=== PATIENT | male | born 1950 | race Caucasian/White ===

== ENCOUNTER 2023-04-06 09:16 | Inpatient (IN) | payer MEDICARE ==
--- NOTE | 2023-04-06 09:26 | ED ---
General Adult HPI - General Stated complaint: chest pain Time Seen by Provider: 04/06/23 09:21 Source: patient, family, EMS, RN notes reviewed, old records reviewed Limitations: altered mental status - History of Present Illness Initial comments: 72-year-old male with substernal chest pain and pressure. Pain began after taking a walk this morning. No prior history of CAD. Patient had associated nausea and vomiting. History is somewhat limited in this patient due to pain. He was transported by paramedics, given aspirin by her to arrival. - Related Data Home Medications Medication Instructions Recorded Confirmed amLODIPine [Norvasc] 5 mg PO DAILY 03/20/16 03/20/16 Previous Rx's Medication Instructions Recorded Atorvastatin [Lipitor] 10 mg PO HS #30 tab 03/23/16 Clopidogrel [Plavix] 75 mg PO DAILY #30 tablet 03/23/16 Allergies Allergy/AdvReac Type Severity Reaction Status Date / Time Penicillins Allergy Unknown Verified 04/06/23 09:27 Childhood Review of Systems ROS Statement: Those systems with pertinent positive or pertinent negative responses have been documented in the HPI. ROS Other: All systems not noted in ROS Statement are negative. Past Medical History Past Medical History: Syncope Additional Past Medical History / Comment(s): kidney stones. symptomatic bradycardia - snycopal episode History of Any Multi-Drug Resistant Organisms: None Reported Past Surgical History: Orthopedic Surgery Additional Past Surgical History / Comment(s): arthroscopic surgery bilateral knees Past Anesthesia/Blood Transfusion Reactions: Postoperative Nausea & Vomiting (PONV) Additional Past Anesthesia/Blood Transfusion Reaction / Comment(s): difficult to arouse Past Psychological History: No Psychological Hx Reported Past Alcohol Use History: None Reported Past Drug Use History: None Reported - Past Family History Father Family Medical History: Cancer, Diabetes Mellitus, Hyperlipidemia, Hypertension, Myocardial Infarction ([place]) Additional Family Medical History / Comment(s): prostate. passed Mother Family Medical History: CVA/TIA, Diabetes Mellitus, Hypertension Additional Family Medical History / Comment(s): dmultiple TIAS. complication of CVA. aspiration General Exam General appearance: alert Head exam: Present: atraumatic, normocephalic Eye exam: Present: normal appearance, PERRL ENT exam: Present: normal oropharynx Neck exam: Present: normal inspection. Absent: tenderness, meningismus Respiratory exam: Present: normal lung sounds bilaterally. Absent: respiratory distress Cardiovascular Exam: Present: normal rhythm, bradycardia GI/Abdominal exam: Present: soft. Absent: distended, tenderness Extremities exam: Present: normal inspection, normal capillary refill. Absent: pedal edema, calf tenderness Neurological exam: Present: alert. Absent: motor sensory deficit Psychiatric exam: Present: normal affect, normal mood Skin exam: Present: warm, dry, intact. Absent: cyanosis, diaphoretic Course Vital Signs 04/06/23 09:21 Temperature 97.6 F Pulse Rate 52 L Respiratory 20 Rate Blood Pressure 169/103 O2 Sat by Pulse 98 Oximetry - Reevaluation(s) Reevaluation #1: 04/06/23 09:[address] Rawls Reevaluation #2: 04/06/23 09:[address] Albarado Medical Decision Making - Medical Decision Making Was pt. sent in by a medical professional or institution (, PA, DIRECTOR SALES AND MARKETING, urgent care, hospital, or fdc...) When possible be specific @ -No Did you speak to anyone other than the patient for history (EMS, parent, family, police, friend...)? What history was obtained from this source @ -Paramedics Did you review nursing and triage notes (agree or disagree)? Why? @ -I reviewed and agree with nursing and triage notes Were old charts reviewed (outside hosp., previous admission, EMS record, old EKG, old radiological studies, urgent care reports/EKG's, fdc records)? Report findings @ -No old charts were reviewed Differential Diagnosis (chest pain, altered mental status, abdominal pain women, abdominal pain men, vaginal bleeding, weakness, fever, dyspnea, syncope, headache, dizziness, GI bleed, back pain, seizure, CVA, palpatations, mental health, musculoskeletal)? @ -Differential Chest Pain: Stable Angina, Unstable Angina, STEMI, NSTEMI Aortic Dissection, Pneumothorax, Musculoskeletal, Esophageal Spasm GERD, Cholecystitis, Pancreatitis, Zoster, this is not meant to be an all-inclusive list. EKG interpreted by me (3pts min.). @ -Sinus rhythm with first-degree AV block, rate of 52, QRS duration 89, QTC 412, LA interval is prolonged, there is ST segment elevation in aVR and reciprocal ST segment depression in the lateral precordial leads as well as lead 1 and lead 2. T-wave inversion in aVL. X-rays interpreted by me (1pt min.). @ -[Chest x-ray has been ordered, results are pending CT interpreted by me (1pt min.). @ -None done U/S interpreted by me (1pt. min.). @ -None done What testing was considered but not performed or refused? (CT, X-rays, U/S, labs)? Why? @ -None What meds were considered but not given or refused? Why? @ -None Did you discuss the management of the patient with other professionals (professionals i.e. , PA, DIRECTOR SALES AND MARKETING, lab, RT, psych nurse, social science instructor, jaw skinner, teacher, foreign policy officer, registered nurse hh case manager)? Give summary @ -No Was smoking cessation discussed for >3mins.? @ -No Was critical care preformed (if so, how long)? @ -[Yes, 35 minutes Were there social determinants of health that impacted care today? How? (Homelessness, low income, unemployed, alcoholism, drug addiction, transportation, low edu. Level, literacy, decrease access to med. care, penitentiary, rehab)? @ -No Was there de-escalation of care discussed even if they declined (Discuss DNR or withdrawal of care, Hospice)? DNR status @ -No What co-morbidities impacted this encounter? (DM, HTN, Smoking, COPD, CAD, Cancer, CVA, ARF, Chemo, Hep., AIDS, mental health diagnosis, sleep apnea, morbid obesity)? @ -[Hypertension Was patient admitted / discharged? Hospital course, mention meds given and route, prescriptions, significant lab abnormalities, going to OR and other pertinent info. @ -[72-year-old male presenting with symptoms concerning for ACS. EKG is ischemic but does not meet ST segment elevation criteria. Patient is evaluated by cardiology in the emergency department and taken urgently to the [facility] for heart catheterization. Laboratory studies are pending at the time of this dictation. Undiagnosed new problem with uncertain prognosis? @ -No Drug Therapy requiring intensive monitoring for toxicity (Heparin, Nitro, Insulin, Cardizem)? @ -No Were any procedures done? @ -No Diagnosis/symptom? @ -[Acute coronary syndrome Acute, or Chronic, or Acute on Chronic? @ -Acute Uncomplicated (without systemic symptoms) or Complicated (systemic symptoms)? @ -default Side effects of treatment? @ -No Exacerbation, Progression, or Severe Exacerbation? @ -No Poses a threat to life or bodily function? How? (Chest pain, [place], [place], pneumonia, PE, COPD, DKA, ARF, appy, cholecystitis, CVA, Diverticulitis, Homicidal, Suicidal, threat to staff... and all critical care pts) @ -[Yes, ACS Critical Care Time Critical Care Time: Yes Total Critical Care Time: 35 Disposition Clinical Impression: Acute coronary syndrome Disposition: ADMITTED IP TO THIS HOSP Condition: Serious Is patient prescribed a controlled substance at d/c from ED?: No Referrals: Hector Sloan DO [Primary Care Provider] - 1-2 days Time of Disposition: 09:52
[2023-04-06] MEDS ORDERED: ATORVASTATIN 80 MG TAB PO STA (09:27)
[2023-04-06] MEDS ORDERED: NITROGLYCERIN-D5W PMX 50 MG in DEXTROSE/WATER 1 250ML.BAG IV ONE (09:32)
[2023-04-06] MEDS ORDERED: HEPARIN SODIUM 1,000 UN/ML (10ML VL) IV ONE ×2 (09:32→11:05)
[2023-04-06] MEDS ORDERED: HEPARIN SODIUM 1,000 UN/ML (10ML VL) IV PRN (09:32)
[2023-04-06] MEDS ORDERED: MORPHINE SULFATE 4 MG/ML SYRINGE IVP STA (09:33)
[2023-04-06] MEDS ORDERED: NALOXONE 0.4 MG/ML 1 ML VIAL IV PRN (09:33)
[2023-04-06] MEDS ORDERED: HEPARIN SOD,PORK IN 0.45% NACL 25,000 UNIT in 0.45% NACL 1 250ML.BAG IV SCH (09:45)
[2023-04-06] MEDS ORDERED: SODIUM CHLORIDE 0.9% 1,000 ML IV ONE (09:55)
[2023-04-06 10:01] LABS: Basophils % (A) 1 %; Eosinophils # (A) 0.2 k/uL (0-0.7); Eosinophils % (A) 2 %; HGB 15.6 gm/dL (13.0-17.5); Lymphocytes % (A) 23 %; MCH 29.9 pg (25.0-35.0); MCHC 33.9 g/dL (31.0-37.0); MCV 88.3 fL (80.0-100.0); Mean Platelet Volume 9.4; Monocytes # (A) 0.4 k/uL (0-1.0); Monocytes % (A) 5 %; Neutrophils # (A) 5.8 k/uL (1.3-7.7); Neutrophils % (A) 68 %; Platelet Count 252 k/uL (150-450); RDW 12.4 % (11.5-15.5); WBC 8.6 k/uL (3.8-10.6)
[2023-04-06] MEDS ORDERED: LIDOCAINE 1% INJ 10MG/ML (20 ML MDV) ONE (10:13)
[2023-04-06] MEDS ORDERED: VERAPAMIL 2.5 MG/ML 2 ML AMP ONE (10:13)
[2023-04-06 10:18] LABS: ALT 26 U/L (4-49); AST 31 U/L (17-59); African American GFR (CKD) 76 (>60 ml/min/1.73 sqM); Alkaline Phosphatase 95 U/L (38-126); Anion Gap 16 mmol/L; Blood Urea Nitrogen 23 mg/dL (9-20); Calcium 9.3 mg/dL (8.4-10.2); Carbon Dioxide 14 mmol/L (22-30); Chloride 109 mmol/L (98-107); Glucose 201 mg/dL (74-99); Magnesium 1.7 mg/dL (1.6-2.3); Non-African American GFR(CKD) 66 (>60 ml/min/1.73 sqM); Potassium 4.2 mmol/L (3.5-5.1); Sodium 139 mmol/L (137-145); Total Bilirubin 1.1 mg/dL (0.2-1.3); Total Protein 6.4 g/dL (6.3-8.2)
[2023-04-06 10:22] LABS: Partial Thromboplastin Time 22.3 sec (22.0-30.0); Prothrombin Time 10.8 sec (9.0-12.0)
[2023-04-06] MEDS ORDERED: IV FLUID CONTINUATION 1,000 ML IV ONE (10:22)
[2023-04-06] MEDS ORDERED: HEPARIN SODIUM 1,000 UN/ML (10ML VL) ONE (10:33)
[2023-04-06] MEDS ORDERED: MIDAZOLAM 2 MG/2 ML VIAL IVP ONE (10:36)
[2023-04-06] MEDS ORDERED: LIDOCAINE 1% INJ 10MG/ML (20 ML MDV) SQ ONE (10:46)
[2023-04-06] MEDS ORDERED: VERAPAMIL SYRINGE (5 MG/10 ML) INTRAARTER ONE (10:48)
[2023-04-06] MEDS ORDERED: fentaNYL (PF) 50 MCG/ML 2 ML AMP ONE (10:54)
[2023-04-06] MEDS ORDERED: fentaNYL (PF) 50 MCG/ML 2 ML AMP IVP ONE (10:55)
[2023-04-06] MEDS ORDERED: niCARdipine 25 MG/10 ML VIAL ONE (11:33)
[2023-04-06] MEDS ORDERED: TICAGRELOR 90 MG TAB ONE (11:37)
[2023-04-06] MEDS ORDERED: TICAGRELOR 90 MG TAB PO ONE (11:39)
[2023-04-06] MEDS ORDERED: niCARdipine Syringe (1,000 mcg/10 mL) INTRACORON ONE (11:40)
[2023-04-06] MEDS ORDERED: ZOLPIDEM 5 MG TAB PO PRN (12:03)
[2023-04-06] MEDS ORDERED: MAG HYDROX/AL HYDROX/SIMETH 30 ML CUP PO PRN (12:03)
[2023-04-06] MEDS ORDERED: ATROPINE SULFATE 0.1 MG/ML 10ML SYRINGE IV PRN (12:03)
[2023-04-06] MEDS ORDERED: RX INFO: IV CONTRAST WAS GIVEN 1 EACH MISC MISCELLANE PRN (12:03)
[2023-04-06] MEDS ORDERED: IOPAMIDOL-370 200ML BTL INJ ONE (12:08)
--- NOTE | 2023-04-06 12:14 | P.PCN ---
Date of Procedure: 04/06/23 Operative Findings: CARDIAC CATHETERIZATION AND PERCUTANEOUS CORONARY INTERVENTION PERFORMING PHYSICIAN: Josiah Jhaveri MD, [facility] PROCEDURE PERFORMED: 1. Selective right and left coronary angiogram 2. Left heart catheterization 3. Successful stenting of mid LAD versus large diagonal branch using 3.25 x 28 and 4.5 x 12 Xience MOHIT with an excellent angiographic results 4. Adjunctive use of intravascular ultrasound 5. Ultrasound-guided access of the right radial artery INDICATION: This is a 72-year-old gentleman with hypertension and dyslipidemia who presented to the hospital with chest discomfort and continues to have ongoing chest discomfort with an EKG showing ST segment elevation in aVR and diffuse ST segment depression. COMPLICATION: None APPROACH: Right radial artery LEVEL OF SEDATION: Moderate with the sedation time off [] minutes PROCEDURE DESCRIPTION: After obtaining an informed consent the patient was brought to the cardiac labor economics teacher. The right radial artery was cannulated using puncture technique under ultrasound guidance and the micropuncture wire passed easily then I placed a 6- Latv[place] sheath in the right radial artery to give the patient 2 mg of verapamil enter arterial and 4000 units of heparin intravenous with continuous ACT monitoring. Additional heparin was given throughout the procedure. Selective right and left coronary angiogram performed using JR4 and JL 3.5 catheters. Left heart catheterization was performed using the JR4 catheter which cross aortic valve then I did pulled back across the valve. After that I did intervene on the LAD/diagonal. The procedure was completed was no complication SELECTIVE CORONARY ANGIOGRAM: The right coronary artery: Large caliber vessel and dominant vessel. The RCA has mild disease only. Distally bifurcates into PDA and PLV branches both appear to have mild disease only. Left main: Is angiographically normal. Bifurcates into an LCx and LAD The left circumflex: Large caliber vessel nondominant vessel was mild disease only. The left anterior descending artery: The very proximal LAD appeared to have a stump. We advanced a wire through the stump with a balloon backup but no antegrade flow and no ipsilateral collateral identified to feel that LAD. We started noticing PVCs. After that the LAD has tubular lesion appears to be in the range of 80-90%. HEMODYNAMICS: The LVEDP was 14 mmHg was no significant gradient across aortic valve PCI OF THE LAD: Anticoagulation was initiated using heparin with continuous ACT monitoring. Subsequently I did engage the left main using JL 3.5 guiding catheter. I did advance the wire all the way to the proximal LAD. Because there was a concern about the very proximal LAD is occluded and whatever were seeing was a large diagonal branch I did advance a wire across that stump but the wire would not go all the way to apical portion of the left ventricle. We started noticing PVCs. Beside that I advanced the balloon across the "stomped" but in spite of advancing the balloon back and forth multiple times no antegrade flow was identified and no collateral when I injected the left coronary system was able to filling the LAD. So the LAD could be chronically occluded. Subsequently I did advance the wire into the distal portion of the LAD/possible diuretic. I did intravascular ultrasound and that showed a diameter distally about 3.5 mm and proximally about 4.5 mm. I did balloon angioplasty using 3 mm balloon. Subsequently I deployed distally 3.25 x 28 mm stent and proximally 4.5 x 12 mm stents. Postdilatation was performed after at the rescue ultrasound was performed and showed that the stent in the distal portion appears to be somewhat slightly constricted and not well expanded using 3.5 mm noncompliant balloon. Final angiogram showed good angiographic results at the procedure was completed was no complication CONCLUSION: 1. Severe disease involving the midportion of the LAD versus large diagonal branch. I did perform successful stenting of the LAD with a good angiographic results 2. Possible chronic total occlusion (EVAPORATOR REPAIRER) of the very proximal left anterior descending artery. This is to be addressed using CTA down the line as an outpatient 3. Mildly elevated left-sided filling pressure was noted. POSTPROCEDURE MANAGEMENT: 1. Dual antiplatelet therapy using aspirin and Brilinta for 12 month 2. Aggressive cholesterol control 3. Follow-up with the patient
[2023-04-06] MEDS ORDERED: SODIUM CHLORIDE 0.9% 1,000 ML in EMPTY BAG 1 BAG IV SCH (12:15)
[2023-04-06] MEDS: NITROGLYCERIN SL TABS 0.4 MG TAB SUBLINGUAL PRN ×3 (13:49→18:59)
[2023-04-06] MEDS: ISOSORBIDE MONONITRATE ER 30 MG TAB.ER.24H PO SCH (15:14)
--- NOTE | 2023-04-06 15:29 | P.CRDCN ---
History of Present Illness Consult date: 04/06/23 Consult reason: chest pain History of present illness: This is Abiel Boucher NP, I'm dictating on behalf of Dr. Rawls's H&P and A&P The patient was interviewed and examined. HPI: Patient is a 72-year-old male with a past medical history that includes kidney stones, symptomatically bradycardia, single episodes, who presents to the hospital with significant chest pain. Family is at the bedside reports of the patient was walking his dog this morning, and after coming back and sitting down started having severe chest pain. Interview with the patient is limited due to his significant pain. Patient is writhing in pain and unable to respond to questions well. Patient's called EMS who transported him to the hospital after getting aspirin. We were consulted for urgent consult for possible HI. Review the patient's EKG shows ST depression in leads I, II, aVF, V4, V5, with ST elevation in aVR, and V3. We are concerned for acute coronary syndrome. pathology lab technician was contacted and activated for emergent coronary angiogram. ROS: Unable to be completed due to patient's significant chest pain EXAMINATION: GENERAL: Ill-appearing, well-nourished and in significant pain. NECK: Supple without JVD or thyromegaly. LUNGS: Breath sounds clear to auscultation bilaterally. Respiration equal and unlabored. No wheezes, rales or rhonchi. HEART: Regular rate and rhythm without murmurs, rubs or gallops. S1 and S2 heard. EXTREMITIES: Normal range of motion, no edema. No clubbing or cyanosis. Peripheral pulses intact and strong. REVIEW OF LABS, ECG & MEDICAL DATA: LABS: White count 8.6, hemoglobin 15.6, platelets 252, sodium 139, potassium 4.2, BUN 23, creatinine 1.12, calcium 9.3, magnesium 1.7, troponin 0.021 EKG: Sinus bradycardia, with ST depression in leads I, II, aVF, V4, and V5, with ST elevation in aVR and V3. IMAGING: None completed prior to evaluation. VITALS: Temp 97.6, pulse 52, respirations 20, blood pressure 169/103, O2 saturation 98% on room air IMPRESSION: 1. Acute coronary syndrome with ST elevation and depression. 2. Severe coronary artery disease involving the midportion of the LAD versus large diagonal branch, possible chronic total occlusion of the very proximal left anterior descending artery, mildly elevated left-sided filling pressure. 3. Successful stenting of the LAD with good angiographic results 4. Hypertension PLAN: Dual antiplatelet therapy using aspirin and Ticagrelor for 12 months. Aggressive cholesterol control. Patient will need outpatient CT angiogram to evaluate proximal left anterior descending artery. Begin carvedilol 6.25 mg twice a day. Start Imdur 30 mg daily. Start losartan 50 mg daily. Start atorvastatin 80 mg daily. Further recommendations based on patient's clinical course. Thank you for the consult and allowing us to participate in the care of this patient. Past Medical History Past Medical History: Syncope Additional Past Medical History / Comment(s): kidney stones. symptomatic bradycardia - snycopal episode History of Any Multi-Drug Resistant Organisms: None Reported Past Surgical History: Orthopedic Surgery Additional Past Surgical History / Comment(s): arthroscopic surgery bilateral knees Past Anesthesia/Blood Transfusion Reactions: Postoperative Nausea & Vomiting ( PONV) Additional Past Anesthesia/Blood Transfusion Reaction / Comment(s): difficult to arouse Past Psychological History: No Psychological Hx Reported Past Alcohol Use History: None Reported Past Drug Use History: None Reported - Past Family History Father Family Medical History: Cancer, Diabetes Mellitus, Hyperlipidemia, Hypertension, Myocardial Infarction ([place]) Additional Family Medical History / Comment(s): prostate. passed Mother Family Medical History: CVA/TIA, Diabetes Mellitus, Hypertension Additional Family Medical History / Comment(s): dmultiple TIAS. complication of CVA. aspiration Medications and Allergies Home Medications Medication Instructions Recorded Confirmed Type amLODIPine [Norvasc] 5 mg PO HS 03/20/16 04/06/23 History Allergies Allergy/AdvReac Type Severity Reaction Status Date / Time Penicillins Allergy Unknown Verified 04/06/23 14:27 Childhood Physical Exam Vitals: Vital Signs Temp Pulse Resp BP Pulse Ox 04/06/23 09:21 97.6 F 52 L 20 169/103 98 Intake and Output 04/06/23 04/06/23 04/06/23 06:59 14:59 22:59 Intake Total 250 Balance 250 Intake: IV 250 Other: Weight 97.522 kg Results 04/06/23 09:27 04/06/23 09:27 Cardiac Enzymes 04/06/23 04/06/23 Range/Units 09:27 09:27 AST 31 (17-59) U/L Troponin I 0.021 (0.000-0.034) ng/mL Coagulation 04/06/23 Range/Units 09:27 PT 10.8 (9.0-12.0) sec APTT 22.3 (22.0-30.0) sec CBC 04/06/23 Range/Units 09:27 WBC 8.6 (3.8-10.6) k/uL RBC 5.20 (4.30-5.90) m/uL Hgb 15.6 (13.0-17.5) gm/dL Hct 46.0 (39.0-53.0) % Plt Count 252 (150-450) k/uL Comprehensive Metabolic Panel 04/06/23 Range/Units 09:27 Sodium 139 (137-145) mmol/L Potassium 4.2 (3.5-5.1) mmol/L Chloride 109 H (98-107) mmol/L Carbon Dioxide 14 L (22-30) mmol/L BUN 23 H (9-20) mg/dL Creatinine 1.12 (0.66-1.25) mg/dL Glucose 201 H (74-99) mg/dL Calcium 9.3 (8.4-10.2) mg/dL AST 31 (17-59) U/L ALT 26 (4-49) U/L Alkaline Phosphatase 95 (38-126) U/L Total Protein 6.4 (6.3-8.2) g/dL Albumin 4.0 (3.5-5.0) g/dL Current Medications Generic Name Dose Route Start Last Admin Trade Name Freq PRN Reason Stop Dose Admin Al Hydroxide/Mg Hydroxide 30 ml 04/06/23 12:03 Mag Hydrox/Al Hydrox/Simeth 30 Ml Cup PO Q4HR PRN Heartburn Aspirin 81 mg 04/07/23 09:00 Aspirin 81 Mg PO DAILY [facility] Atorvastatin Calcium 80 mg 04/07/23 09:00 Atorvastatin 80 Mg Tab PO DAILY [facility] Atropine Sulfate 0.5 mg 04/06/23 12:03 Atropine Sulfate 0.1 Mg/Ml 10ml Syringe IV ONCE PRN Symptomatic Bradycardia Carvedilol 6.25 mg 04/06/23 17:30 Carvedilol 6.25 Mg Tab PO BID-W/MEALS [facility] Nitroglycerin/Dextrose 50 mg/ 250 mls @ 1.5 mls/hr 10/01/23 09:32 04/06/23 09:52 IV Solution IV 04/07/23 09:31 5 mcg/min .Q24H ONE 1.5 mls/hr Administration Protocol 5 MCG/MIN Sodium Chloride 1,000 ml/ IV 1,000 mls @ 75 mls/hr 04/06/23 12:15 04/06/23 13:51 Solution IV 04/06/23 17:16 75 mls/hr .[id number] JOSEPH Administration Isosorbide Mononitrate 30 mg 04/06/23 14:15 Isosorbide Mononitrate Er 30 Mg Tab.Er.24h PO DAILY [facility] Losartan Potassium 50 mg 04/07/23 18:00 Losartan 50 Mg Tab PO DAILY [facility] Miscellaneous Information 1 each 04/06/23 12:03 Rx Info: Iv Contrast Was Given 1 Each Misc MISCELLANE 04/08/23 12:03 DAILY PRN Per Protocol Naloxone HCl 0.2 mg 04/06/23 09:33 Naloxone 0.4 Mg/Ml 1 Ml Vial IV Q2M PRN Opioid Reversal Nitroglycerin 0.4 mg 04/06/23 12:03 04/06/23 13:57 Nitroglycerin Sl Tabs 0.4 Mg Tab SUBLINGUAL 0.4 mg Q5M PRN Administration Chest Pain Ticagrelor 90 mg 04/06/23 21:00 Ticagrelor 90 Mg Tab PO BID [facility] Protocol Zolpidem Tartrate 5 mg 04/06/23 12:03 Zolpidem 5 Mg Tab PO HS PRN Insomnia Intake and Output 04/06/23 04/06/23 04/06/23 06:59 14:59 22:59 Intake Total 250 Balance 250 Intake: IV 250 Other: Weight 97.522 kg Patient Weight 04/07/23 06:59 Weight 97.522 kg 04/06/23 09:27 04/06/23 09:27
--- NOTE | 2023-04-06 16:29 | XR ---
EXAMINATION TYPE: XR chest 1V DATE OF EXAM: 04/06/2023 4:23 PM CLINICAL INDICATION:Male, 72 years old with history of chest pain COMPARISON: None. TECHNIQUE: XR chest 1V Frontal view of the chest. FINDINGS: Lungs/Pleura: Subsegmental atelectasis/scarring is noted in the lung bases. No evidence of pleural ef fusion or pneumothorax. Pulmonary vascularity: Unremarkable. Heart/mediastinum: Cardiomediastinal silhouette is unremarkable. Musculoskeletal: No acute osseous pathology. IMPRESSION: No acute cardiopulmonary disease/process.
[2023-04-06] MEDS: carvediloL 6.25 MG TAB PO SCH (17:35)
[2023-04-06] MEDS ORDERED: TEMAZEPAM 15 MG CAP PO PRN (18:07)
[2023-04-06] MEDS ORDERED: ONDANSETRON 4 MG/2 ML VIAL IVP PRN (18:07)
[2023-04-06] MEDS ORDERED: LORazepam 0.5 MG TAB PO PRN (18:07)
[2023-04-06] MEDS ORDERED: LACTULOSE 20 GM/30 ML CUP PO PRN (18:07)
[2023-04-06] MEDS ORDERED: ACETAMINOPHEN TAB 325 MG TAB PO PRN (18:07)
--- NOTE | 2023-04-06 18:09 | P.HPIM ---
History of Present Illness H&P Date: 04/06/23 Chief Complaint: Chest pain Psych pleasant 72-year-old patient who follows with Dr. Jigar Sloan. Normally patient is in very good shape with good exercise tolerance. 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 Patient went for a walk this morning developed central chest pressure. Time came home he became diaphoretic. came down the stairs and find him dry heaving. Patient to have his having chest heaviness. Having tingling in his hands. Initial EKG at the site showed negative for STEMI. Patient recently had a kidney stone removed. Moved to the ER. Patient admitted to the director of labor and delivery. Found to have severe disease involving the midportion of the LAD versus large diagonal branch. Successful stenting was carried out. Possible chronic total occlusion of the any proximal LAD. Po stprocedure patient brought down to the ICU. Present some chest discomfort. No scar intact with the rehabilitation construction specialist. and patient's 2 daughters at the bedside. Review of systems: GEN.: Tired EYES: None HEENT: None NECK: None RESPIRATORY: As above CARDIOVASCULAR: As above GASTROINTESTINAL: None GENITOURINARY: None MUSCULOSKELETAL: None LYMPHATICS: None HEMATOLOGICAL: None PSYCHIATRY: None NEUROLOGICAL: None Past medical history to include: Kidney stones. 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 EYES: Pupils equal. Conjunctiva normal. HEENT: External appearance of nose and ears normal, oral cavity grossly normal. NECK: JVD not raised; masses not palpable. HEART: First and second heart sounds are normal; no edema. LUNGS: Respiratory rate normal; clear to auscultation. ABDOMEN: Soft, nontender, liver spleen not palpable, no masses palpable. PSYCH: Alert and oriented x3; mood and affect- anxiousl. MUSCULOSKELETAL:No Clubbing/cyanosis;muscles-grossly intact NEUROLOGICAL: Cranial nerves grossly intact; no facial asymmetry, power and sensation grossly intact. LYMPHATICS: No lymph nodes palpable in the axilla and neck INVESTIGATIONS, reviewed in the clinical context: White count 8.6 hemoglobin 15.6 platelets 252 sodium 139 potassium 4.2 BUN 23 creatinine 1.12 EKG tracing personally reviewed by me-possible atrial flutter. Some ST segment depression Chest x-ray film personally reviewed by me-borderline cardiomegaly Troponin I 0.021 Assessment and plan: -Severe unstable angina, with some EKG changes on presentation. Initial troponin unremarkable. -Coronary artery disease, with stent to LAD Aspirin. Lipitor. Coreg. Imdur. Cozaar. Brillinta. -IV nitroglycerin drip started by cardiology. -Essential hypertension, uncontrolled Coreg, Imdur, Cozaar, nitroglycerin drip -Full code Care was discussed with the patient at the bedside. Follow with cardiology. Past Medical History Past Medical History: Syncope Additional Past Medical History / Comment(s): kidney stones. symptomatic bradycardia - snycopal episode History of Any Multi-Drug Resistant Organisms: None Reported Past Surgical History: Orthopedic Surgery Additional Past Surgical History / Comment(s): arthroscopic surgery bilateral knees Past Anesthesia/Blood Transfusion Reactions: Postoperative Nausea & Vomiting (PONV) Additional Past Anesthesia/Blood Transfusion Reaction / Comment(s): difficult to arouse Past Psychological History: No Psychological Hx Reported Past Alcohol Use History: None Reported Past Drug Use History: None Reported - Past Family History Father Family Medical History: Cancer, Diabetes Mellitus, Hyperlipidemia, Hypertension, Myocardial Infarction ([place]) Additional Family Medical History / Comment(s): prostate. passed Mother Family Medical History: CVA/TIA, Diabetes Mellitus, Hypertension Additional Family Medical History / Comment(s): dmultiple TIAS. complication of CVA. aspiration Medications and Allergies Home Medications Medication Instructions Recorded Confirmed Type amLODIPine [Norvasc] 5 mg PO HS 03/20/16 04/06/23 History Allergies Allergy/AdvReac Type Severity Reaction Status Date / Time Penicillins Allergy Unknown Verified 04/06/23 14:27 Childhood Physical Exam Vitals: Vital Signs Temp Pulse Resp BP Pulse Ox 04/06/23 09:21 97.6 F 52 L 20 169/103 98 Intake and Output 04/05/23 04/06/23 04/06/23 22:59 06:59 14:59 Intake Total 250 Balance 250 Intake: IV 250 Other: Weight 97.522 kg Results CBC & Chem 7: 04/06/23 09:27 04/06/23 09:27 Labs: Abnormal Lab Results - Last 24 Hours (Table) 04/06/23 Range/Units 09:27 Chloride 109 H (98-107) mmol/L Carbon Dioxide 14 L (22-30) mmol/L BUN 23 H (9-20) mg/dL Glucose 201 H (74-99) mg/dL
[2023-04-06] MEDS: SODIUM BICARBONATE TAB 650 MG TAB PO SCH ×2 (19:01→20:30)
[2023-04-06] MEDS: TICAGRELOR 90 MG TAB PO SCH (20:30)
[2023-04-06] MEDS ORDERED: METOPROLOL TARTRATE 25 MG TAB PO SCH (21:00)
[2023-04-06] MEDS ORDERED: ATORVASTATIN 80 MG TAB PO SCH (21:00)
[2023-04-07] MEDS: carvediloL 6.25 MG TAB PO SCH ×2 (06:35→17:25)
[2023-04-07] MEDS: TICAGRELOR 90 MG TAB PO SCH ×2 (08:44→20:24)
[2023-04-07] MEDS: ASPIRIN 81 MG PO SCH (08:44)
[2023-04-07] MEDS: ISOSORBIDE MONONITRATE ER 30 MG TAB.ER.24H PO SCH (08:44)
[2023-04-07] MEDS: ATORVASTATIN 80 MG TAB PO SCH (08:44)
[2023-04-07] MEDS: SODIUM BICARBONATE TAB 650 MG TAB PO SCH ×3 (08:47→20:24)
[2023-04-07] MEDS ORDERED: ASPIRIN 81 MG PO SCH (09:00)
[2023-04-07 09:07] LABS: Basophils % (A) 0 %; Eosinophils # (A) 0.1 k/uL (0-0.7); Eosinophils % (A) 0 %; HCT 43.7 % (39.0-53.0); HGB 14.9 gm/dL (13.0-17.5); Lymphocytes # (A) 1.1 k/uL (1.0-4.8); Lymphocytes % (A) 9 %; MCH 30.3 pg (25.0-35.0); MCHC 34.1 g/dL (31.0-37.0); MCV 88.9 fL (80.0-100.0); Mean Platelet Volume 9.2; Monocytes # (A) 0.5 k/uL (0-1.0); Monocytes % (A) 4 %; Neutrophils # (A) 10.7 k/uL (1.3-7.7); Neutrophils % (A) 86 %; Platelet Count 217 k/uL (150-450); RBC 4.92 m/uL (4.30-5.90); RDW 12.5 % (11.5-15.5); WBC 12.5 k/uL (3.8-10.6)
[2023-04-07 09:17] LABS: Prothrombin Time 10.8 sec (9.0-12.0)
[2023-04-07 09:22] LABS: African American GFR (CKD) >90 (>60 ml/min/1.73 sqM); Anion Gap 14 mmol/L; Blood Urea Nitrogen 15 mg/dL (9-20); Calcium 8.9 mg/dL (8.4-10.2); Carbon Dioxide 18 mmol/L (22-30); Chloride 106 mmol/L (98-107); Glucose 204 mg/dL (74-99); Non-African American GFR(CKD) 83 (>60 ml/min/1.73 sqM); Sodium 138 mmol/L (137-145)
--- NOTE | 2023-04-07 11:06 | CA ---
Transthoracic Echo Report Name: Edward Portillo Age: 72 Gender: M : 1950 Exam Date: 04/07/2023 08:26 Exam Location: [facility] Ht (in): 72 Wt (lb): 215 Ordering Physician: Josiah Jhaveri MD ([id number]) Attending/Referring Phys: Medical Insurance Claims Processor ET Procedure CPT: Indications: ACS Cardiac Hx: Technical Quality: Fair Contrast 1: Total Dose (mL): Contrast 2: Total Dose (mL): MEASUREMENTS (Male / Female) Normal Values 2D ECHO LV Diastolic Diameter PLAX 5.4 cm 4.2 - 5.9 / 3.9 - 5.3 cm LV Systolic Diameter PLAX 4.1 cm IVS Diastolic Thickness 1.1 cm 0.6 - 1.0 / 0.6 - 0.9 cm LVPW Diastolic Thickness 1.1 cm 0.6 - 1.0 / 0.6 - 0.9 cm LV Relative Wall Thickness 0.4 LVOT Diameter 2.1 cm Ascending Aorta Diameter 3.8 cm M-MODE Aortic Root Diameter MM 3.1 cm LA Systolic Diameter MM 5.1 cm LA Ao Ratio MM 1.6 AV Cusp Separation MM 1.9 cm DOPPLER AV Peak Velocity 123.1 cm/s AV Peak Gradient 6.1 mmHg AV Mean Velocity 90.3 cm/s AV Mean Gradient 3.6 mmHg AV Velocity Time Integral 26.7 cm LVOT Peak Velocity 111.6 cm/s LVOT Peak Gradient 5.0 mmHg LVOT Velocity Time Integral 22.2 cm LVOT Stroke Volume 79.1 cm??? LVOT Stroke Volume Index 36.0 ml/m??? LVOT Cardiac Index 1902.7 cm???/min???m??? AV Area Cont Eq vti 3.0 cm??? AV Area Cont Eq pk 3.2 cm??? Mitral E Point Velocity 86.5 cm/s Mitral A Point Velocity 33.2 cm/s Mitral E to A Ratio 2.6 MV Deceleration Time 153.2 ms LV E' Lateral Velocity 12.5 cm/s Mitral E to LV E' Lateral Ratio 6.9 LV E' Septal Velocity 7.9 cm/s Mitral E to LV E' Septal Ratio 11.0 TR Peak Velocity 302.3 cm/s TR Peak Gradient 36.6 mmHg Right Atrial Pressure 8.0 mmHg Pulmonary Artery Systolic Pressu 44.6 mmHg Right Ventricular Systolic Press 44.6 mmHg FINDINGS Left Ventricle Mildly increased left ventricular wall thickness. Left ventricular cavity size normal. Mild concentric left ventricular hypertrophy. Basal-mid anteroseptum hypokinesis. Hypokinetic inferior wall. Basal-mid inferoseptum hypokinesis. Right Ventricle Moderate right ventricular dilatation. Moderate pulmonary hypertension. Right Atrium Moderate right atrial dilatation. Left Atrium Severe left atrial dilatation. Mitral Valve Structurally normal mitral valve. Mild-moderate mitral regurgitation. Aortic Valve Trileaflet aortic valve. Aortic valve sclerosis. No aortic regurgitation. Tricuspid Valve Structurally normal tricuspid valve. Mild tricuspid regurgitation. Pulmonic Valve Structurally normal pulmonic valve. No pulmonic regurgitation. Pericardium No pericardial effusion. Aorta Aorta at upper limits of normal. CONCLUSIONS Ischemic cardiomyopathy with an ejection fraction of 40-45% with wall motion abnormalities as described Moderate pulmonary hypertension Mild to moderate mitral regurgitation Previewed by: Dr. Napoleon Whalen MD (Electronically Signed) Final Date: 07 April 2023 11:05
[2023-04-07 11:55] VITALS: BMI 29.1
--- NOTE | 2023-04-07 12:26 | P.PN ---
Subjective HISTORY OF PRESENT ILLNESS: Patient is status post cardiac catheterization revealing severe disease involving the midportion of the LAD and also possible chronic total occlusion of the very proximal left anterior descending artery. Patient underwent stenting of the LAD. Patient examined this morning at the bedside. He denies chest pain or pressure. He denies shortness of breath. He reports feeling very tired this morning. Vital signs are stable. Echocardiogram completed revealing ejection fraction 40-45% with wall motion abnormalities, moderate pulmonary hypertension, and mild to moderate mitral regurgitation. PHYSICAL EXAM: VITAL SIGNS: Reviewed. GENERAL: Well-developed in no acute distress. NECK: Supple. No JVD or thyromegaly LUNGS: Respirations even and unlabored. Lungs essentially clear to auscultation bilaterally. HEART: Regular rate and rhythm. S1 and S2 heard. EXTREMITIES: Normal range of motion. No clubbing or cyanosis. Peripheral pulses intact. No lower extremity edema ASSESSMENT: Acute coronary syndrome, status post cardiac catheterization with stenting of the LAD Ischemic cardiomyopathy, ejection fraction 40-45% Hypertension PLAN: Continue dual antiplatelet therapy with aspirin and Brilinta Continue high intensity statin Continue additional cardiac medications Patient is currently stable from a cardiac perspective Nurse practitioner note has been reviewed by physician. Signing provider agrees with the documented findings, assessment, and plan of care. Objective - Vital Signs Vital signs: Vital Signs Temp 98.3 F 04/07/23 08:00 Pulse 54 L 04/07/23 08:00 Resp 17 04/07/23 08:00 BP 144/81 04/07/23 08:00 Pulse Ox 97 04/07/23 08:00 FiO2 Intake & Output 04/06/23 04/07/23 04/07/23 18:59 06:59 18:59 Intake Total 250 240 180 Output Total 700 Balance -450 240 180 Weight 97.522 kg 97.522 kg Intake: IV 250 Oral 240 180 Output: Urine 700 Other: # Voids 1 - Labs CBC & Chem 7: 04/07/23 08:19 04/07/23 08:19 Labs: Abnormal Lab Results - Last 24 Hours (Table) 04/07/23 04/07/23 Range/Units 08:19 08:19 WBC 12.5 H (3.8-10.6) k/uL Neutrophils # 10.7 H (1.3-7.7) k/uL Carbon Dioxide 18 L (22-30) mmol/L Glucose 204 H (74-99) mg/dL
--- NOTE | 2023-04-07 14:06 | P.PN ---
Progress Note - Text Progress Note Date: 04/07/23 Chief Complaint: Chest pain Psych pleasant 72-year-old patient who follows with Dr. Jigar Sloan. Normally patient is in very good shape with good exercise tolerance. 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 Patient went for a walk this morning developed central chest pressure. Time cam e home he became diaphoretic. came down the stairs and find him dry heaving. Patient to have his having chest heaviness. Having tingling in his hands. Initial EKG at the site showed negative for STEMI. Patient recently had a kidney stone removed. Moved to the ER. Patient admitted to the ammunition assembly laborer. Found to have severe disease involving the midportion of the LAD versus large diagonal branch. Successful stenting was carried out. Possible chronic total occlusion of the any proximal LAD. Postprocedure patient brought down to the ICU. Present some chest discomfort. No scar intact with the custom framing specialist. and patient's 2 daughters at the bedside. April 07: Feeling better today. Chest discomfort greatly improved. Up to the bathroom. Discussed with the patient . Increase activity. 2-D echo shows EF of the 40-45% with some inferior wall hypokinesis. Active Medications Acetaminophen (Acetaminophen Tab 325 Mg Tab) 650 mg PO Q6HR PRN PRN Reason: Mild Pain or Fever > 100.5 Al Hydroxide/Mg Hydroxide (Mag Hydrox/Al Hydrox/Simeth 30 Ml Cup) 30 ml PO Q4HR PRN PRN Reason: Heartburn Aspirin (Aspirin 81 Mg) 81 mg PO DAILY [facility] Last Admin: 04/07/23 08:44 Dose: 81 mg Atorvastatin Calcium (Atorvastatin 80 Mg Tab) 80 mg PO DAILY [facility] Last Admin: 04/07/23 08:44 Dose: 80 mg Atropine Sulfate (Atropine Sulfate 0.1 Mg/Ml 10ml Syringe) 0.5 mg IV ONCE PRN PRN Reason: Symptomatic Bradycardia Carvedilol (Carvedilol 6.25 Mg Tab) 6.25 mg PO BID-W/MEALS [facility] Last Admin: 04/07/23 06:35 Dose: 6.25 mg Isosorbide Mononitrate (Isosorbide Mononitrate Er 30 Mg Tab.Er.24h) 30 mg PO DAILY [facility] Last Admin: 04/07/23 08:44 Dose: 30 mg Lactulose (Lactulose 20 Gm/30 Ml Cup) 20 gm PO DAILY PRN PRN Reason: Constipation Lorazepam (Lorazepam 0.5 Mg Tab) 0.5 mg PO Q6HR PRN PRN Reason: Anxiety Last Admin: 04/06/23 19:01 Dose: 0.5 mg Losartan Potassium (Losartan 50 Mg Tab) 50 mg PO DAILY [facility] Miscellaneous Information (Rx Info: Iv Contrast Was Given 1 Each Misc) 1 each MISCELLANE DAILY PRN PRN Reason: Per Protocol Stop: 04/08/23 12:03 Naloxone HCl (Naloxone 0.4 Mg/Ml 1 Ml Vial) 0.2 mg IV Q2M PRN PRN Reason: Opioid Reversal Nitroglycerin (Nitroglycerin Sl Tabs 0.4 Mg Tab) 0.4 mg SUBLINGUAL Q5M PRN PRN Reason: Chest Pain Last Admin: 04/06/23 18:59 Dose: 0.4 mg Ondansetron HCl (Ondansetron 4 Mg/2 Ml Vial) 4 mg IVP Q8HR PRN PRN Reason: Nausea And Vomiting Sodium Bicarbonate (Sodium Bicarbonate Tab 650 Mg Tab) 650 mg PO TID [facility] Last Admin: 04/07/23 08:47 Dose: Not Given Temazepam (Temazepam 15 Mg Cap) 15 mg PO HS PRN PRN Reason: Insomnia Ticagrelor (Ticagrelor 90 Mg Tab) 90 mg PO BID [facility]; Protocol Last Admin: 04/07/23 08:44 Dose: 90 mg Past medical history to include: Kidney stones. 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 Comfortable EYES: Pupils equal. Conjunctiva normal. HEENT: External appearance of nose and ears normal, oral cavity grossly normal. NECK: JVD not raised; masses not palpable. HEART: First and second heart sounds are normal; no edema. LUNGS: Respiratory rate normal; clear to auscultation. ABDOMEN: Soft, nontender, liver spleen not palpable, no masses palpable. PSYCH: Alert and oriented x3; mood and affect- anxiousl. MUSCULOSKELETAL:No Clubbing/cyanosis;muscles-grossly intact INVESTIGATIONS, reviewed in the clinical context: 2-D echocardiogram: Inferior septum hypokinesis. Moderate pulmonary hypertension. EF 40-45% April 07: White count 12.5 hemoglobin 14.9 platelets 217 potassium 4 creatinine 0.9 to White count 8.6 hemoglobin 15.6 platelets 252 sodium 139 potassium 4.2 BUN 23 creatinine 1.12 EKG tracing personally reviewed by me-possible atrial flutter. Some ST segment depression Chest x-ray film personally reviewed by me-borderline cardiomegaly Troponin I 0.021 Assessment and plan: -Severe unstable angina, with some EKG changes on presentation. Initial troponin unremarkable.: On presentation -Coronary artery disease, with stent to LAD Aspirin. Lipitor. Coreg. Imdur. Cozaar. Brillinta. -Acute ischemic cardiomyopathy, EF 40-45% Coreg. Cozaar. -IV nitroglycerin drip started by cardiology: Discontinued. -Essential hypertension, Coreg, Immatthewr, Cozaar, -Moderate pulmonary hypertension -Full code Care was discussed with the patient at the bedside. Follow with cardiology. Past Medical History Past Medical History: Syncope Additional Past Medical History / Comment(s): kidney stones. symptomatic bradycardia - snycopal episode History of Any Multi-Drug Resistant Organisms: None Reported Past Surgical History: Orthopedic Surgery Additional Past Surgical History / Comment(s): arthroscopic surgery bilateral knees Past Anesthesia/Blood Transfusion Reactions: Postoperative Nausea & Vomiting (PONV) Additional Past Anesthesia/Blood Transfusion Reaction / Comment(s): difficult to arouse Past Psychological History: No Psychological Hx Reported Past Alcohol Use History: None Reported Past Drug Use History: None Reported - Past Family History Father Family Medical History: Cancer, Diabetes Mellitus, Hyperlipidemia, Hypertension, Myocardial Infarction ([place]) Additional Family Medical History / Comment(s): prostate. passed Mother Family Medical History: CVA/TIA, Diabetes Mellitus, Hypertension Additional Family Medical History / Comment(s): dmultiple TIAS. complication of CVA. aspiration
[2023-04-07 16:25] LABS: LDL Cholesterol,Calculated 101.2 mg/dL (0.0-131.0)
[2023-04-07] MEDS: LOSARTAN 50 MG TAB PO SCH (17:25)
[2023-04-08] MEDS: carvediloL 6.25 MG TAB PO SCH (06:19)
[2023-04-08 08:40] VITALS: RESP 17; TEMP 97.9
[2023-04-08] MEDS: SODIUM BICARBONATE TAB 650 MG TAB PO SCH (08:48)
[2023-04-08] MEDS: ATORVASTATIN 80 MG TAB PO SCH (08:49)
[2023-04-08] MEDS: ASPIRIN 81 MG PO SCH (08:49)
[2023-04-08] MEDS: LOSARTAN 50 MG TAB PO SCH (08:50)
[2023-04-08] MEDS: ISOSORBIDE MONONITRATE ER 30 MG TAB.ER.24H PO SCH (08:50)
[2023-04-08] MEDS: TICAGRELOR 90 MG TAB PO SCH (08:50)
[2023-04-08 11:57] VITALS: BP 133/94; PULSE 57
--- NOTE | 2023-04-08 13:56 | P.PN ---
Subjective HISTORY OF PRESENT ILLNESS: Patient is status post cardiac catheterization revealing severe disease involving the midportion of the LAD and also possible chronic total occlusion of the very proximal left anterior descending artery. Patient underwent stenting of the LAD. Patient examined this morning at the bedside. He denies chest pain or pressure. He denies shortness of breath. He reports feeling very tired this morning. Vital signs are stable. Echocardiogram completed revealing ejection fraction 40-45% with wall motion abnormalities, moderate pulmonary hypertension, and mild to moderate mitral regurgitation. 04/08/2023 Patient examined this morning at the bedside. Patient denies chest pain or pressure. He denies shortness of breath. Vital signs are stable. He is anxious to be discharged home today. PHYSICAL EXAM: VITAL SIGNS: Reviewed. GENERAL: Well-developed in no acute distress. NECK: Supple. No JVD or thyromegaly LUNGS: Respirations even and unlabored. Lungs essentially clear to auscultation bilaterally. HEART: Regular rate and rhythm. S1 and S2 heard. EXTREMITIES: Normal range of motion. No clubbing or cyanosis. Peripheral pulses intact. No lower extremity edema ASSESSMENT: Acute coronary syndrome, status post cardiac catheterization with stenting of the LAD Ischemic cardiomyopathy, ejection fraction 40-45% Hypertension PLAN: Continue dual antiplatelet therapy with aspirin and Brilinta Continue high intensity statin Continue additional cardiac medications Patient is currently stable for discharge home today from a cardiac perspective Nurse practitioner note has been reviewed by physician. Signing provider agrees with the documented findings, assessment, and plan of care. Objective - Vital Signs Vital signs: Vital Signs Temp 97.9 F 04/08/23 11:50 Pulse 57 L 04/08/23 11:50 Resp 17 04/08/23 11:50 BP 133/94 04/08/23 11:50 Pulse Ox 97 04/08/23 11:50 FiO2 Intake & Output 04/07/23 04/08/23 04/08/23 18:59 06:59 18:59 Intake Total 600 340 180 Balance 600 340 180 Weight 97.522 kg Intake: Oral 600 340 180 Other: # Voids 1 2 - Labs CBC & Chem 7: 04/07/23 08:19 04/07/23 08:19 Labs: Abnormal Lab Results - Last 24 Hours (Table) 04/07/23 Range/Units 08:19 Triglycerides 163.00 H (0.00-149.00) mg/dL HDL Cholesterol 38.20 L (40.00-60.00) mg/dL
--- NOTE | 2023-04-08 22:26 | P.DS ---
Providers Date of admission: 04/06/23 09:33 Expected date of discharge: 04/08/23 Attending physician: Merritt Albarado Consults: 04/06/23 09:24 Consult Physician Stat Consulting Provider: Jacky Rawls Consult Reason/Comments: ACute CP Do you want consulting provider notified?: Already Contacted 04/06/23 12:03 Consult Physician Routine Consulting Provider: [facility] Consult Reason/Comments: Post Interventional Patient Do you want consulting provider notified?: Already Contacted Primary care physician: Hector Sloan [facility] Course: Chief Complaint: Chest pain Psych pleasant 72-year-old patient who follows with Dr. Jigar Sloan. Normally patient is in very good shape with good exercise tolerance. 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 Patient went for a walk this morning developed central chest pressure. Time came home he became diaphoretic. came down the stairs and find him dry heaving. Patient to have his having chest heaviness. Having tingling in his hands. Initial EKG at the site showed negative for STEMI. Patient recently had a kidney stone removed. Moved to the ER. Patient admitted to the blood bank laboratory technologist. Found to have severe disease involving the midportion of the LAD versus large diagonal branch. Successful stenting was carried out. Possible chronic total occlusion of the any proximal LAD. Postprocedure patient brought down to the ICU. Present some chest discomfort. No scar intact with the ball rolling machine operator. and patient's 2 daughters at the bedside. April 07: Feeling better today. Chest discomfort greatly improved. Up to the bathroom. Discussed with the patient . Increase activity. 2-D echo shows EF of the 40-45% with some inferior wall hypokinesis. April 08: Doing better. Up and about. Patient has several questions. Described best of my ability. He'll follow-up with cardiology. Activity per cardiology. Results of echocardiogram discussed. Discussion and discharge planning more than 35 minutes Past medical history to include: Kidney stones. 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 Conjunctiva normal. HEENT: External appearance of nose and ears normal, oral cavity grossly normal. NECK: JVD not raised; masses not palpable. HEART: First and second heart sounds are normal; no edema. LUNGS: Respiratory rate normal; clear to auscultation. ABDOMEN: Soft, nontender, liver spleen not palpable, no masses palpable. PSYCH: Alert and oriented x3; mood and affect- normal MUSCULOSKELETAL:No Clubbing/cyanosis;muscles-grossly intact INVESTIGATIONS, reviewed in the clinical context: 2-D echocardiogram: Inferior septum hypokinesis. Moderate pulmonary hypertension. EF 40-45% April 07: White count 12.5 hemoglobin 14.9 platelets 217 potassium 4 creatinine 0.9 to White count 8.6 hemoglobin 15.6 platelets 252 sodium 139 potassium 4.2 BUN 23 creatinine 1.12 EKG tracing personally reviewed by me-possible atrial flutter. Some ST segment depression Chest x-ray film personally reviewed by me-borderline cardiomegaly Troponin I 0.021 Assessment and plan: -Severe unstable angina, with some EKG changes on presentation. Initial troponin unremarkable.: On presentation -Coronary artery disease, with stent to LAD Aspirin. Lipitor. Coreg. Imdur. Cozaar. Brillinta. -Acute ischemic cardiomyopathy, EF 40-45% Coreg. Cozaar. -Essential hypertension, Coreg, Imdur, Cozaar, -Moderate pulmonary hypertension -Full code Disposition: Home Past Medical History Past Medical History: Syncope Additional Past Medical History / Comment(s): kidney stones. symptomatic bradycardia - snycopal episode History of Any Multi-Drug Resistant Organisms: None Reported Past Surgical History: Orthopedic Surgery Additional Past Surgical History / Comment(s): arthroscopic surgery bilateral knees Past Anesthesia/Blood Transfusion Reactions: Postoperative Nausea & Vomiting ( PONV) Additional Past Anesthesia/Blood Transfusion Reaction / Comment(s): difficult to arouse Past Psychological History: No Psychological Hx Reported Past Alcohol Use History: None Reported Past Drug Use History: None Reported - Past Family History Father Family Medical History: Cancer, Diabetes Mellitus, Hyperlipidemia, Hypertension, Myocardial Infarction (ID) Additional Family Medical History / Comment(s): prostate. passed Mother Family Medical History: CVA/TIA, Diabetes Mellitus, Hypertension Additional Family Medical History / Comment(s): dmultiple TIAS. complication of CVA. aspiration Plan - Discharge Summary Discharge Rx Participant: No New Discharge Prescriptions: New carvediloL [Coreg] 6.25 mg PO BID-W/MEALS #30 tab Atorvastatin [Lipitor] 80 mg PO DAILY #60 tab Nitroglycerin Sl Tabs [Nitrostat] 0.4 mg SUBLINGUAL Q5M PRN #30 tab PRN Reason: Chest Pain Sodium Bicarbonate Tab 650 mg PO TID #30 tab Aspirin 81 mg PO DAILY tab Ticagrelor [Brilinta] 90 mg PO BID #60 tab Losartan [Cozaar] 50 mg PO DAILY #30 tab Isosorbide Mononitrate ER [Imdur] 30 mg PO DAILY #30 tab Discontinued amLODIPine [Norvasc] 5 mg PO HS Discharge Medication List Aspirin 81 mg PO DAILY tab 04/08/23 [Rx] Atorvastatin [Lipitor] 80 mg PO DAILY #60 tab 04/08/23 [Rx] Isosorbide Mononitrate ER [Imdur] 30 mg PO DAILY #30 tab 04/08/23 [Rx] Losartan [Cozaar] 50 mg PO DAILY #30 tab 04/08/23 [Rx] Nitroglycerin Sl Tabs [Nitrostat] 0.4 mg SUBLINGUAL Q5M PRN #30 tab 04/08/23 [Rx] Sodium Bicarbonate Tab 650 mg PO TID #30 tab 04/08/23 [Rx] Ticagrelor [Brilinta] 90 mg PO BID #60 tab 04/08/23 [Rx] carvediloL [Coreg] 6.25 mg PO BID-W/MEALS #30 tab 04/08/23 [Rx] Follow up Appointment(s)/Referral(s): Josiah Jhaveri MD [STAFF PHYSICIAN] - 1 Week (office will call you with appt time) Hector Sloan DO [Primary Care Provider] - 1-2 days (office will call you with appt. time) Patient Instructions/Handouts: *Surgery [facility] - After Heart Catheterization - Amb ulatory Care Instructions, Safe Use of Antiplatelet Medication (DC), After Radial Heart Catheterization (GEN) Discharge Disposition: HOME SELF-CARE
== END 2023-04-08 12:51 | disposition home or self-care (01) | DRG 247 ==
LOC: EC 09:16 → 2SICU 09:33 → 3SCARD 18:02
PROVIDERS: ADMIT Hospitalist; ATTEND Hospitalist
PROC: B240ZZ3 Ultrasonography of Single Coronary Artery, Intravascular (ICD-10-PCS; 2023-04-06)
PROC: 027035Z Dilation of Coronary Artery, One Artery with Two Drug-eluting Intraluminal Devices, Percutaneous Approach (ICD-10-PCS; principal; 2023-04-06 09:51)
PROC: 4A023N7 Measurement of Cardiac Sampling and Pressure, Left Heart, Percutaneous Approach (ICD-10-PCS; 2023-04-06 09:51)
PROC: B2111ZZ Fluoroscopy of Multiple Coronary Arteries using Low Osmolar Contrast (ICD-10-PCS; 2023-04-06 09:51)
DX: I25.110 Atherosclerotic heart disease of native coronary artery with unstable angina pectoris (principal); I27.20 Pulmonary hypertension, unspecified; I08.1 Rheumatic disorders of both mitral and tricuspid valves; I25.5 Ischemic cardiomyopathy; I44.0 Atrioventricular block, first degree; K21.9 Gastro-esophageal reflux disease without esophagitis; K59.00 Constipation, unspecified; Y93.K1 Activity, walking an animal; Z79.02 Long term (current) use of antithrombotics/antiplatelets; Z79.82 Long term (current) use of aspirin; Z79.899 Other long term (current) drug therapy; Z82.49 Family history of ischemic heart disease and other diseases of the circulatory system; Z95.5 Presence of coronary angioplasty implant and graft; Z87.442 Personal history of urinary calculi
CPT/HCPCS: 71045; 80048; 80053; 80061; 83735; 84484; 85025; 85610; 85730; 92978; 93005; 93306; 93458; 96365; 96368; 96375; 99291

== ENCOUNTER → 2023-09-29 | Outpatient (CLI) | payer MEDICARE ==
[2023-09-29 11:24] LABS: HCT 49.6 % (39.6-50.0); HGB 16.6 g/dL (13.0-17.0); MCH 29.5 pg (27.0-32.0); MCHC 33.5 g/dL (32.0-37.0); MCV 88.3 FL (80.0-97.0); Mean Platelet Volume 12.3 FL (9.5-12.2); NRBC Per 100 WBC 0 X 10*3/uL (0.00-0.01); Platelet Count 211 X 10*3/uL (140-440); RBC 5.62 X 10*6/uL (4.40-5.60); RDW 12.6 % (11.5-14.5); WBC 7.58 X 10*3/uL (4.50-10.00)
[2023-09-29 18:48] LABS: Blood Urea Nitrogen 24.8 mg/dL (9.0-27.0); Carbon Dioxide 23.9 mmol/L (21.6-31.8); Chloride 108 mmol/L (96-109); Potassium 4.6 mmol/L (3.5-5.5); Sodium 143 mmol/L (135-145)
== END | disposition home or self-care (01) ==
LOC: LABWHC1 07:39
PROVIDERS: ATTEND Internal Medicine Clinical Cardiac Electrophysiology
DX: Z01.812 Encounter for preprocedural laboratory examination (principal); I25.5 Ischemic cardiomyopathy; E78.5 Hyperlipidemia, unspecified
CPT/HCPCS: 36415; 80051; 82565; 84520; 85027

== ENCOUNTER 2023-10-07 05:42 | Day surgery (SDC) | payer MEDICARE ==
[2023-09-30 12:27] VITALS: BMI 29.1
[2023-10-07] MEDS: SODIUM CHLORIDE 0.9% 1,000 ML IV SCH (06:45)
[2023-10-07 06:58] LABS: Basophils # (A) 0.1 k/uL (0-0.2); Basophils % (A) 1 %; Eosinophils # (A) 0.3 k/uL (0-0.7); Eosinophils % (A) 3 %; HCT 46.1 % (39.0-53.0); HGB 15.9 gm/dL (13.0-17.5); Lymphocytes # (A) 2.1 k/uL (1.0-4.8); Lymphocytes % (A) 25 %; MCH 30.3 pg (25.0-35.0); MCHC 34.4 g/dL (31.0-37.0); MCV 88.2 fL (80.0-100.0); Mean Platelet Volume 9.8; Monocytes # (A) 0.5 k/uL (0-1.0); Monocytes % (A) 6 %; Neutrophils # (A) 5.1 k/uL (1.3-7.7); Neutrophils % (A) 62 %; Platelet Count 191 k/uL (150-450); RBC 5.23 m/uL (4.30-5.90); RDW 13.5 % (11.5-15.5); WBC 8.2 k/uL (3.8-10.6)
[2023-10-07] MEDS ORDERED: HYDROmorphone 0.5 MG/0.5 ML SYRINGE IVP PRN (07:00)
[2023-10-07] MEDS ORDERED: MIDAZOLAM 2 MG/2 ML VIAL IV PRN (07:00)
[2023-10-07 07:37] LABS: ALT 41 U/L (4-49); AST 32 U/L (17-59); African American GFR (CKD) 73 (>60 ml/min/1.73 sqM); Albumin 3.7 g/dL (3.5-5.0); Alkaline Phosphatase 97 U/L (38-126); Anion Gap 9 mmol/L; Blood Urea Nitrogen 23 mg/dL (9-20); Carbon Dioxide 17 mmol/L (22-30); Chloride 114 mmol/L (98-107); Glucose 122 mg/dL (74-99); Non-African American GFR(CKD) 63 (>60 ml/min/1.73 sqM); Potassium 4.1 mmol/L (3.5-5.1); Sodium 140 mmol/L (137-145)
[2023-10-07] MEDS ORDERED: LIDOCAINE 1% INJ 10MG/ML (20 ML MDV) ONE ×2 (07:43→08:13)
[2023-10-07] MEDS ORDERED: PROPOFOL 10 MG/ML 20 ML VIAL IV ONE (07:43)
[2023-10-07] MEDS ORDERED: NEOSTIGMINE 1 MG/ML 10 ML VIAL ONE (07:43)
[2023-10-07] MEDS ORDERED: PHENYLEPHRINE 10 MG/ML VIAL ONE (07:43)
[2023-10-07] MEDS ORDERED: PHENYLEPHRINE-0.9% NACL SYG 1,000 MCG/10 ML SYRINGE ONE (07:43)
[2023-10-07] MEDS ORDERED: HEPARIN SODIUM,PORCINE 5,000 UNIT/ML 1 ML VIAL ONE (07:43)
[2023-10-07] MEDS ORDERED: fentaNYL (PF) 50 MCG/ML 2 ML AMP ONE (07:43)
[2023-10-07] MEDS ORDERED: GLYCOPYRROLATE 0.2 MG/ML 2 ML VIAL ONE (07:43)
[2023-10-07] MEDS ORDERED: MIDAZOLAM 2 MG/2 ML VIAL ONE (07:43)
[2023-10-07] MEDS ORDERED: SUCCINYLCHOLINE CHLORIDE 200 MG/10 ML VIAL IV ONE (07:43)
[2023-10-07] MEDS ORDERED: ROCURONIUM 10 MG/ML (5 ML VIAL) IV ONE (07:43)
[2023-10-07] MEDS: LIDOCAINE 1% INJ 10MG/ML (20 ML MDV) SQ ONE (08:17)
[2023-10-07] MEDS: HEPARIN SODIUM (1,000 UNIT/ML) 1,000 UNIT in SODIUM CHLORIDE 0.9% 1,000 ML IRRIGATION ONE (08:41)
[2023-10-07] MEDS ORDERED: ACETAMINOPHEN TAB 325 MG TAB PO PRN (10:36)
--- NOTE | 2023-10-07 10:59 | P.HPCAR ---
History of Present Illness This is Dr. Rawls dictating an H/P on this patient The patient was interviewed and examined IMPRESSION / ASSESSMENT: Atrial tachycardia/atrial flutter with slow ventricular response History of hypertension Acute coronary syndrome in 2022, severe coronary disease in the midportion of the LAD, large diagonal branch, chronic total occlusion of the proximal LAD Successful stenting of the mid LAD by Dr. Jhaveri History of being admitted for CVA in 2016. No A-fib was detected but a loop monitor was recommended by Dr. wilkins Mild mitral valve prolapse and mild mitral regurgitation with preserved systolic function in 2016 on TITO. Acute CVA right occipital lobe in 2016 History of left old occipital lobe cortical infarct first detected in 2016 (3 cm wedge-shaped area in the lateral left occipital lobe) 5 mm hypodense area in the anterior internal capsule bilaterally Mildly prolonged MS interval of 226 ms in 2016 on twelve-lead EKG with a heart rate of 59 beats a minute PLAN: Diagnostic EP study and atrial flutter ablation Assessment for sick sinus syndrome and AV node disease Reassessment of the chronically occluded proximal LAD Reassessment of LV function after ablation Continue Brilinta and Eliquis Lipid panel hemoglobin A1c Assessment for atrial fibrillation in the future Long-term anticoagulation to continue since he has had 2 strokes most likely related to atrial fibrillation because in 2016 he did not have any significant carotid disease. He had mild atherosclerotic plaque in the aorta on TITO at that time. HPI This is a 73-year-old male patient who is being admitted for management of atrial tachycardia, possibly atrial flutter with a slow ventricular response He complains of tiredness and fatigue lack of energy He had a lot of questions about why he was falling apart before the procedure. He said he did not understand why he was having so many problems all of a sudden He is very athletic most of his life and states that he does not understand why he has so many problems now I had a very detailed discussion with the patient Firstly this is clearly not all of a sudden. He has had at least 2 strokes 1 well before 2016 and the second 1 in 2016 Subsequently last year he came in with an acute coronary syndrome and was found to have severe disease in the LAD and underwent coronary stenting Subsequently we have detected atrial flutter/atrial tachycardia as well as severe bradycardia and likely significant AV node disease given the slow ventricular response of the atrial flutter ROS: No fever chills or rigors, no cough, phlegm or expectoration, no nausea, vomiting or diarrhea, no hematuria, dysuria, no musculoskeletal complaints, no strokes or seizures, no skin lesions. EXAMINATION: Heart rate between 40-50 beats a minute afebrile Blood pressure 155/86 143/85 mmHg Heart sounds are irregular Breath sounds are clear no rhonchi no crackles No JVD no carotid bruits No lower extremity edema Soft abdomen nontender REVIEW OF LABS, ECG & MEDICAL DATA Labs reviewed normal white count. Normal hemoglobin normal platelet count Normal electrolytes BUN 23 creatinine 1.2 Normal TSH of 2.5 Physical Exam Vitals: Vital Signs Temp Pulse Resp BP Pulse Ox 10/07/23 10:30 51 L 16 148/85 100 10/07/23 10:25 96.7 F L 52 L 14 143/85 94 L 10/07/23 06:44 97.9 F 41 L 18 155/86 96 Intake and Output 10/06/23 10/07/23 10/07/23 22:59 06:59 14:59 Intake Total 200 571 Balance 200 571 Intake: IV 200 571 Other: Weight 101.2 kg Past Medical History Past Medical History: Atrial Fibrillation, CVA/TIA, Eye Disorder, Hyperlipidemia, Syncope Additional Past Medical History / Comment(s): kidney stones. symptomatic bradycardia - snycopal episode. OCCIPITAL STROKE 03/20/16-LOST VISION IN BOTH EYES-NOW NO VISION LT EYE AT 6 AN 9 O'CLOCK POSITION. RT EYE VISION RESOLVED, CARDIAC EVENT-04/06/23; CATARACTS History of Any Multi-Drug Resistant Organisms: None Reported Past Surgical History: Heart Catheterization, Heart Catheterization With Stent, Orthopedic Surgery Additional Past Surgical History / Comment(s): arthroscopic surgery bilateral knees, Past Anesthesia/Blood Transfusion Reactions: Postoperative Nausea & Vomiting (PONV) Additional Past Anesthesia/Blood Transfusion Reaction / Comment(s): difficult to arouse Date of Last Stent Placement:: 04/06/23 X 2 STENTS Smoking Status: Never smoker - Past Family History Father Family Medical History: Cancer, Diabetes Mellitus, Hyperlipidemia, Hypertension, Myocardial Infarction (PR) Additional Family Medical History / Comment(s): prostate. passed Mother Family Medical History: CVA/TIA, Diabetes Mellitus, Hypertension Additional Family Medical History / Comment(s): multiple TIAS. complication of CVA. aspiration Physical Examination Vital Signs Temp Pulse Resp BP Pulse Ox 10/07/23 10:30 51 L 16 148/85 100 10/07/23 10:25 96.7 F L 52 L 14 143/85 94 L 10/07/23 06:44 97.9 F 41 L 18 155/86 96 Intake and Output 10/06/23 10/07/23 10/07/23 22:59 06:59 14:59 Intake Total 200 571 Balance 200 571 Intake: IV 200 571 Other: Weight 101.2 kg Results 10/07/23 06:35 10/07/23 06:35 Cardiac Enzymes 10/07/23 Range/Units 06:35 AST 32 (17-59) U/L CBC 10/07/23 Range/Units 06:35 WBC 8.2 (3.8-10.6) k/uL RBC 5.23 (4.30-5.90) m/uL Hgb 15.9 (13.0-17.5) gm/dL Hct 46.1 (39.0-53.0) % Plt Count 191 (150-450) k/uL Comprehensive Metabolic Panel 10/07/23 Range/Units 06:35 Sodium 140 (137-145) mmol/L Potassium 4.1 (3.5-5.1) mmol/L Chloride 114 H (98-107) mmol/L Carbon Dioxide 17 L (22-30) mmol/L BUN 23 H (9-20) mg/dL Creatinine 1.15 (0.66-1.25) mg/dL Glucose 122 H (74-99) mg/dL Calcium 9.0 (8.4-10.2) mg/dL AST 32 (17-59) U/L ALT 41 (4-49) U/L Alkaline Phosphatase 97 (38-126) U/L Total Protein 6.0 L (6.3-8.2) g/dL Albumin 3.7 (3.5-5.0) g/dL Current Medications Generic Name Dose Route Start Last Admin Trade Name Freq PRN Reason Stop Dose Admin Acetaminophen 650 mg 10/07/23 10:36 Acetaminophen Tab 325 Mg Tab PO 11/06/23 10:37 Q6HR PRN Mild Pain (Scale 1 to 3) Apixaban 5 mg 10/07/23 21:00 Apixaban 5 Mg Tab PO 11/06/23 21:01 BID JOSEPH Protocol Atorvastatin Calcium 80 mg 10/08/23 09:00 Atorvastatin 80 Mg Tab PO 11/07/23 09:01 DAILY JOSEPH Hydromorphone HCl 0.5 mg 10/07/23 07:00 Hydromorphone 0.5 Mg/0.5 Ml Syringe IVP 10/07/23 23:00 Q5M PRN Phase 1 or 2 - Pain Control Losartan Potassium 50 mg 10/07/23 21:00 Losartan 50 Mg Tab PO 11/06/23 21:01 BID [facility] Midazolam HCl 2 mg 10/07/23 07:00 Midazolam 2 Mg/2 Ml Vial IV 10/07/23 23:00 ONCE PRN Pre-Op Anxiety Sodium Chloride 12 ml 10/07/23 10:36 Sodium Chloride 0.9% Flush 10 Ml Syringe IV 11/06/23 10:37 Q12HR PRN Line Flush Ticagrelor 90 mg 10/07/23 21:00 Ticagrelor 90 Mg Tab PO 11/06/23 21:01 BID [facility] Intake and Output 10/06/23 10/07/23 10/07/23 22:59 06:59 14:59 Intake Total 200 571 Balance 200 571 Intake: IV 200 571 Other: Weight 101.2 kg 10/07/23 06:35 10/07/23 06:35
[2023-10-07] MEDS: ACETAMINOPHEN IV (For NPO) 1,000 MG in EMPTY BAG 1 BAG IVPB ONE (13:01)
--- NOTE | 2023-10-07 13:32 | P.EPPROC ---
- EP Procedure Note Electrophysiology Procedure Note: Diagnosis Atrial tachycardia with a slow ventricular response/atrial flutter, sustained Symptomatic with tiredness fatigue shortness of breath Mild cardiomyopathy Past history of CVA on 2 occasions 1 prior to 2016, the other in 2016 Mildly prolonged LA interval in 2016 Coronary artery disease with significant disease in the proximal LAD as well as the mid LAD status post stenting late last year This was in the setting of non-Q wave myocardial infarction with ECG changes Procedure Diagnosis EP study and ablation Final diagnosis Organized atrial fibrillation masquerading as an atrial tachycardia Documented typical atrial flutter Successful ablation for typical atrial flutter with confirmed bidirectional block with isthmus conduction time of greater than 220 ms post ablation Left atrial enlargement, the measurement from the fossa ovalis to the lateral LA wall was > 5 cms Mildly thickened pericardium with trace-small effusion Sinus bradycardia but with a LA interval of about 260-270 ms Improvement of sinus rate with IV atropine. No improvement in AV node conduction time with atropine Details Patient was brought to the EP lab in a fasting state. Written informed consent was obtained prior to the procedure. General anesthesia was provided 5000 units of IV heparin given Venous sheaths placed in the right left femoral veins The twelve-lead EKG showed upright atrial activity in lead V1 as well as upright in the inferior leads tachycardia cycle length 266 ms Venous sheaths were placed in the right left femoral veins Diagnostic mapping and ablation catheters were placed Intracardiac echo catheter was placed Mild thickening of the pericardium with a trace to small pericardial effusion predominantly at the base of the LV and behind the LA noted Left atrial enlargement of greater than 5 cm noted No thrombus in the left atrial appendage Coronary sinus electrograms consistent with atrial fibrillation, organized The twelve-lead EKG looks like atrial tachycardia but intracardiac electrograms showed organized A-fib Electrical cardioversion was first performed Ablation for typical atrial was performed in sinus rhythm 3D anatomic mapping was performed Long isthmus, cavotricuspid Electroanatomic mapping was performed RF ablation was performed. A linear line of block was made. A complete anatomic line of block was made Following that isthmus conduction time was greater than 220 ms in either direction Bidirectional block was proven with differential pacing Following that a full EP study was performed from the high right atrium coronary sinus in the right ventricle Sinus cycle length 1252 ms, QRS 93 ms, QT interval 500 ms The LA interval was 273 ms. This was similar to his LA interval preablation when he was admitted to the hospital with an acute myocardial infarction AH interval 168 ms, HV interval 61 ms Sinus node recovery times were prolonged AV node Wenckebach block greater than 600 ms under general anesthesia [facility] Wenckebach block 450 ms, midline Atropine 1 mg was given. This resulted in improvement in sinus node function but with minimal improvement in the LA interval All catheters were removed. Vascade closure device was applied Patient tolerated the procedure well without any acute complications
[2023-10-07] MEDS: LACTATED RINGERS 1,000 ML IV SCH (13:40)
[2023-10-07 16:33] LABS: Chol/HDL Ratio 3.94 Ratio; LDL Cholesterol,Calculated 35.3 mg/dL (0.0-131.0)
[2023-10-07] MEDS: LOSARTAN 50 MG TAB PO SCH (20:54)
[2023-10-07] MEDS: APIXABAN 5 MG TAB PO SCH (20:54)
[2023-10-07] MEDS: TICAGRELOR 90 MG TAB PO SCH (21:25)
[2023-10-08 07:54] VITALS: BP 156/83; PULSE 54; RESP 18; TEMP 97.6
--- NOTE | 2023-10-08 08:11 | P.PRLE ---
RE: Edward Portillo Dear Ehsan Edward Bandar date of 1950 was admitted for evaluation management of atrial flutter with a very slow ventricular response It was anticipated that he would have underlying bradycardia with AV node disease and this was explained to him prior to the procedure Intraoperatively the following findings were noted 1. Persistent organized atrial fibrillation 2. Mild cardiomyopathy 3. Enlarged left atrium He underwent electrical cardioversion and successful atrial flutter ablation with confirmed bidirectional block with differential pacing. Sinus bradycardia with very mild improvement with atropine IV Prolonged CA interval as expected with a CA interval of about 270 ms with no improvement on IV atropine (His CA interval in 2016 was about 226 ms, when he was admitted with recurrent occipital strokes to [facility]) Subsequently I sent labs and the following were noted 1. Hemoglobin A1c was 6.2 2. Triglycerides of 327 3. Excellent LDL of 35 mg/dL on atorvastatin 80 mg p.o. daily. The patient has had a non-Q wave myocardial infarction with significant disease in the LAD in April 2023. He should continue atorvastatin at the same dose to maintain a very low LDL to reduce future cardiovascular events Overnight on telemetry his heart rates remained in the 50s and has CA prolongation persisted at 270 ms, despite holding carvedilol for 2 days Recommendations 1. The patient has had multiple mini strokes and 2 large embolic strokes on and before 2015. The most likely reason for the strokes was atrial fibrillation and therefore he must continue anticoagulation uninterrupted and lifelong, with Eliquis 5 mg twice daily. His [id number] score is high. 2. Continue atorvastatin and Brilinta for management of atherosclerosis, coronary stenting in the setting of a non-Q wave myocardial infarction about 6 months back. We will continue Brilinta for at least 1 year 3. In view of the bradycardia I will hold carvedilol and reassess. However the patient has a cardiomyopathy, mild status post TX and carvedilol is indicated 4. He will continue losartan 50 mg twice daily for management of hypertension in the setting of prediabetes and atherosclerosis 5. I would start Farxiga 10 mg p.o. daily for management of cardiomyopathy, heart failure 6. Management of prediabetes, consideration for metformin 7. The patient would like to proceed with cataract surgery and intraocular lens implant. This would be fine as long as Brilinta or Eliquis are not interrupted. If it is necessary to interrupt these medications then I would defer eye surgery until April of this year. 8. He should proceed with an A-fib ablation and I will schedule this for him, probably for next month 9. If he is unable to tolerate carvedilol on account of severe bradycardia or if he has significant bradycardia that precludes beta-joe use, then he will need permanent pacing with conduction system pacing to allow for beta-joe therapy post TX and for mild cardiomyopathy 10. Outpatient assessment for sleep apnea given history of atrial fibrillation, left atrial enlargement and mild RV enlargement noted on 2D echo in 2022 The above were discussed with the patient's and then with the patient. The patient for some reason was under the impression that he has exercised all these years and has been in excellent health and now it seems that he is certainly developing all kinds of medical problems. I clarified that when he was admitted in 2015 he had an occipital stroke and he had a previous occipital stroke even prior to 2015. In addition at that time multiple lacunar infarcts were also noted. Therefore his significant cardiovascular problems began in 2015 and before. At that time he had to first-degree AV block and that is simply progressed over time. His cardiovascular issues are not new, they have simply progressed over time and after reviewing the entire data from 2016 I am of the opinion that the strokes were related to atrial fibrillation since he did not have any significant vascular disease to account for it. He also underwent coagulopathy testing at that time which was negative. I have recommended to the patient that he be compliant with his medications now and address each and every aspect of his medical issues
--- NOTE | 2023-10-08 08:15 | P.DS ---
Providers Attending physician: Jacky Rawls Primary care physician: Ehsan Michelle MD Hospital Course: Edward Portillo date of 1950 was admitted for evaluation management of atrial flutter with a very slow ventricular response It was anticipated that he would have underlying bradycardia with AV node disease and this was explained to him prior to the procedure Intraoperatively the following findings were noted 1. Persistent organized atrial fibrillation 2. Mild cardiomyopathy 3. Enlarged left atrium He underwent electrical cardioversion and successful atrial flutter ablation with confirmed bidirectional block with differential pacing. Sinus bradycardia with very mild improvement with atropine IV Prolonged WY interval as expected with a WY interval of about 270 ms with no improvement on IV atropine (His WY interval in 2016 was about 226 ms, when he was admitted with recurrent occipital strokes to [facility]) Subsequently I sent labs and the following were noted 1. Hemoglobin A1c was 6.2 2. Triglycerides of 327 3. Excellent LDL of 35 mg/dL on atorvastatin 80 mg p.o. daily. The patient has had a non-Q wave myocardial infarction with significant disease in the LAD in April 2023. He should continue atorvastatin at the same dose to maintain a very low LDL to reduce future cardiovascular events Overnight on telemetry his heart rates remained in the 50s and has WY prolongation persisted at 270 ms, despite holding carvedilol for 2 days Recommendations 1. The patient has had multiple mini strokes and 2 large embolic strokes on and before 2015. The most likely reason for the strokes was atrial fibrillation and therefore he must continue anticoagulation uninterrupted and lifelong, with Eliquis 5 mg twice daily. His [id number] score is high. 2. Continue atorvastatin and Brilinta for management of atherosclerosis, coronary stenting in the setting of a non-Q wave myocardial infarction about 6 months back. We will continue Brilinta for at least 1 year 3. In view of the bradycardia I will hold carvedilol and reassess. However the patient has a cardiomyopathy, mild status post UT and carvedilol is indicated 4. He will continue losartan 50 mg twice daily for management of hypertension in the setting of prediabetes and atherosclerosis 5. I would start Farxiga 10 mg p.o. daily for management of cardiomyopathy, heart failure 6. Management of prediabetes, consideration for metformin 7. The patient would like to proceed with cataract surgery and intraocular lens implant. This would be fine as long as Brilinta or Eliquis are not interrupted. If it is necessary to interrupt these medications then I would defer eye surgery until April of this year. 8. He should proceed with an A-fib ablation and I will schedule this for him, probably for next month 9. If he is unable to tolerate carvedilol on account of severe bradycardia or if he has significant bradycardia that precludes beta-joe use, then he will need permanent pacing with conduction system pacing to allow for beta-joe therapy post UT and for mild cardiomyopathy 10. Outpatient assessment for sleep apnea given history of atrial fibrillation, left atrial enlargement and mild RV enlargement noted on 2D echo in 2022 The above were discussed with the patient's and then with the patient. The patient for some reason was under the impression that he has exercised all these years and has been in excellent health and now it seems that he is certainly developing all kinds of medical problems. I clarified that when he was admitted in 2015 he had an occipital stroke and he had a previous occipital stroke even prior to 2015. In addition at that time multiple lacunar infarcts were also noted. Therefore his significant cardiovascular problems began in 2015 and before. At that time he had to first-degree AV block and that is simply progressed over time. His cardiovascular issues are not new, they have simply progressed over time and after reviewing the entire data from 2016 I am of the opinion that the strokes were related to atrial fibrillation since he did not have any significant vascular disease to account for it. He also underwent coagulopathy testing at that time which was negative. I have recommended to the patient that he be compliant with his medications now and address each and every aspect of his medical issues On examination his blood pressure is in the normal range Heart rates are in the 50s He has a first-degree AV block of 270 ms on telemetry and on twelve-lead EKG Heart sounds S1-S2 normal no murmurs Lungs are clear Groins of healed well post ablation Plan Discharge home today Start Farxiga 10 mg p.o. daily Hold carvedilol Continue losartan, atorvastatin 80 mg p.o. daily, Brilinta to continue [facility] Plan - Discharge Summary Discharge Rx Participant: No New Discharge Prescriptions: No Action RX: Atorvastatin [Lipitor] 80 mg PO DAILY #60 tab carvediloL [Coreg] 3.125 mg PO BID RX: Losartan [Cozaar] 50 mg PO BID Apixaban [Eliquis] 5 mg PO BID RX: Ticagrelor [Brilinta] 90 mg PO BID #60 tab Discharge Medication List RX: Atorvastatin [Lipitor] 80 mg PO DAILY #60 tab 04/08/23 [Rx] RX: Ticagrelor [Brilinta] 90 mg PO BID #60 tab 04/08/23 [Rx] Apixaban [Eliquis] 5 mg PO BID 09/30/23 [History] RX: Losartan [Cozaar] 50 mg PO BID 09/30/23 [History] carvediloL [Coreg] 3.125 mg PO BID 09/30/23 [History] Follow up Appointment(s)/Referral(s): Jacky Rawls MD [STAFF PHYSICIAN] - 1 Week Activity/Diet/Wound Care/Special Instructions: Post EP study - Ablation instructions 1. Keep access sites dry for 2 days. 2. No heavy lifting or straining for 2 days. 3. Avoid bending the hips repeatedly for 2 days. 4. You may go up and down stairs slowly Call if the following is noted 1. Bleeding, increasing swelling or pain at the access sites. 2. Increasing chest discomfort, especially upon taking a deep breath. 3. Increasing shortness of breath, at rest or with exertion. 4. Undue cough / phlegm 5. Difficulty or pain while swallowing. 6. Pain or change in color in the extremities. 7. Fever, chills, rigors. 8. Increasing headache or neurologic symptoms. 9. Dizziness, fainting, palpitations Continue Eliquis uninterrupted
[2023-10-08] MEDS: DAPAGLIFLOZIN PROPANEDIOL 10 MG TABLET PO SCH (09:37)
[2023-10-08] MEDS: ATORVASTATIN 80 MG TAB PO SCH (09:38)
== END 2023-10-08 10:35 | disposition home or self-care (01) ==
LOC: CATHEP 05:42 → 6NMEDSUR 09:59 → CATHEP 10-08 10:35
PROVIDERS: ATTEND Internal Medicine Clinical Cardiac Electrophysiology
DX: I47.19 Other supraventricular tachycardia (principal); I42.9 Cardiomyopathy, unspecified; I48.91 Unspecified atrial fibrillation; I10 Essential (primary) hypertension; I63.9 Cerebral infarction, unspecified; I25.10 Atherosclerotic heart disease of native coronary artery without angina pectoris; Z86.73 Personal history of transient ischemic attack (TIA), and cerebral infarction without residual deficits; Z82.49 Family history of ischemic heart disease and other diseases of the circulatory system; Z79.01 Long term (current) use of anticoagulants; Z79.02 Long term (current) use of antithrombotics/antiplatelets; Z87.442 Personal history of urinary calculi; Z83.3 Family history of diabetes mellitus; Z82.3 Family history of stroke; Z83.49 Family history of other endocrine, nutritional and metabolic diseases
CPT/HCPCS: 93623; 93662; 93653; 86900; 86901; 80061; 80053; 84443; 84156; 85025; 86850; 83036; C1759; C1894; C1769; C1760; C1766; C1730; C1732; J2001; J1644

== ENCOUNTER → 2023-11-17 | Outpatient (CLI) | payer MEDICARE ==
[2023-11-17 14:33] LABS: HGB 15.2 g/dL (13.0-17.0); MCH 29.9 pg (27.0-32.0); MCV 90.4 FL (80.0-97.0); Mean Platelet Volume 12.4 FL (9.5-12.2); NRBC Per 100 WBC 0 X 10*3/uL (0.00-0.01); Platelet Count 222 X 10*3/uL (140-440); RBC 5.09 X 10*6/uL (4.40-5.60); RDW 12.3 % (11.5-14.5); WBC 7.85 X 10*3/uL (4.50-10.00)
[2023-11-17 14:51] LABS: Blood Urea Nitrogen 27.4 mg/dL (9.0-27.0); Carbon Dioxide 22.4 mmol/L (21.6-31.8); Chloride 108 mmol/L (96-109); Potassium 4.7 mmol/L (3.5-5.5); Sodium 143 mmol/L (135-145)
== END | disposition home or self-care (01) ==
LOC: LABPAT 08:28
PROVIDERS: ATTEND Internal Medicine Clinical Cardiac Electrophysiology
DX: Z01.812 Encounter for preprocedural laboratory examination (principal); I48.0 Paroxysmal atrial fibrillation
CPT/HCPCS: 36415; 80051; 82565; 84520; 85027

== ENCOUNTER 2023-12-08 05:45 | Day surgery (SDC) | payer MEDICARE ==
[2023-12-08] MEDS: SODIUM CHLORIDE 0.9% 1,000 ML IV ONE (06:21)
[2023-12-08 06:57] VITALS: RESP 16
[2023-12-08] MEDS ORDERED: fentaNYL (PF) 50 MCG/ML 2 ML AMP ONE (07:41)
[2023-12-08] MEDS ORDERED: PROTAMINE SULFATE 10 MG/ML 5 ML VIAL ONE (07:41)
[2023-12-08] MEDS ORDERED: LIDOCAINE 1% INJ 10MG/ML (20 ML MDV) ONE (07:41)
[2023-12-08] MEDS ORDERED: PHENYLEPHRINE 10 MG/ML VIAL ONE (07:41)
[2023-12-08] MEDS ORDERED: WATER FOR INJECTION, STERILE 10 ML VIAL IV ONE (07:41)
[2023-12-08] MEDS ORDERED: ROCURONIUM 10 MG/ML (5 ML VIAL) IV ONE (07:41)
[2023-12-08] MEDS ORDERED: HEPARIN SODIUM,PORCINE 10,000 UNIT/ML 1 ML VIAL ONE (07:41)
[2023-12-08] MEDS ORDERED: ePHEDrine 50 MG/ML 1 ML VIAL ONE (07:41)
[2023-12-08] MEDS ORDERED: SUCCINYLCHOLINE CHLORIDE 200 MG/10 ML VIAL IV ONE (07:41)
[2023-12-08] MEDS ORDERED: PROPOFOL 10 MG/ML 20 ML VIAL IV ONE (07:41)
[2023-12-08] MEDS: HEPARIN SOD,PORK IN 0.45% NACL 25,000 UNIT in 0.45% NACL 1 250ML.BAG IV ONE (08:10)
[2023-12-08] MEDS: LIDOCAINE 1% INJ 10MG/ML (20 ML MDV) SQ ONE (08:20)
[2023-12-08] MEDS: HEPARIN SODIUM (1,000 UNIT/ML) 1,000 UNIT in SODIUM CHLORIDE 0.9% 1,000 ML IRRIGATION ONE (09:45)
[2023-12-08] MEDS: IOPAMIDOL-370 100ML BTL INJ ONE (10:00)
[2023-12-08] MEDS ORDERED: ACETAMINOPHEN TAB 325 MG TAB PO PRN (11:52)
--- NOTE | 2023-12-08 12:04 | P.HPCAR ---
History of Present Illness This is Dr. Rawls dictating an H/P on this patient The patient was interviewed and examined IMPRESSION / ASSESSMENT: Persistent atrial fibrillation, status post electrical cardioversion Sick sinus syndrome AV node disease Typical atrial flutter status post ablation CAD status post stenting History of prior CVA History of ischemic cardiomyopathy ejection fraction 45% PLAN: Diagnostic EP study and A-fib ablation Continue anticoagulation and Brilinta Hold beta-blockers for now and reevaluate bradycardia Reevaluate sick sinus syndrome and bradycardia following ablation Reevaluate LV function Reevaluate need for beta-blockers HPI Patient is doing well no syncope no dizziness no lightheadedness no undue shortness of breath He continues to have mild fatigue ROS: No fever chills or rigors, no cough, phlegm or expectoration, no nausea, vomiting or diarrhea, no hematuria, dysuria, no musculoskeletal complaints, no strokes or seizures, no skin lesions. EXAMINATION: 148/83 mmHg pulse rate in the 50s Heart sounds are normal no murmurs no gallop No JVD Clear lungs no rhonchi no crackles Abdomen soft No lower extremity edema REVIEW OF LABS, ECG & MEDICAL DATA Medications include valsartan Farxiga Brilinta spironolactone atorvastatin and Eliquis Physical Exam Vitals: Vital Signs Temp Pulse Resp BP BP Pulse Ox 12/08/23 06:48 98.3 F 54 L 16 148/83 138/82 98 Intake and Output 12/07/23 12/08/23 12/08/23 22:59 06:59 14:59 Intake Total 50 1400 Balance 50 1400 Intake: IV 50 1400 Other: Weight 100.5 kg Past Medical History Past Medical History: Atrial Fibrillation, Coronary Artery Disease (CAD), Hyperlipidemia, Hypertension, Renal Disease, Syncope Additional Past Medical History / Comment(s): See Dr. Rawls's H&P. kidney stones/surgically removed, symptomatic bradycardia - History of Any Multi-Drug Resistant Organisms: None Reported Past Surgical History: Cardiac Ablation, Heart Catheterization, Heart Catheterization With Stent, Orthopedic Surgery Additional Past Surgical History / Comment(s): Cardioversion, arthroscopic surgery bilateral knees, lithotripsy Past Anesthesia/Blood Transfusion Reactions: Postoperative Nausea & Vomiting (PONV) Additional Past Anesthesia/Blood Transfusion Reaction / Comment(s): difficult to arouse Date of Last Stent Placement:: 2022 Smoking Status: Never smoker - Past Family History Father Family Medical History: Cancer, Diabetes Mellitus, Hyperlipidemia, Hypertension, Myocardial Infarction (DE) Additional Family Medical History / Comment(s): prostate. passed Mother Family Medical History: CVA/TIA, Diabetes Mellitus, Hypertension Additional Family Medical History / Comment(s): multiple TIAS. complication of CVA. aspiration Physical Examination Vital Signs Temp Pulse Resp BP BP Pulse Ox 12/08/23 06:48 98.3 F 54 L 16 148/83 138/82 98 Intake and Output 12/07/23 12/08/23 12/08/23 22:59 06:59 14:59 Intake Total 50 1400 Balance 50 1400 Intake: IV 50 1400 Other: Weight 100.5 kg Results Current Medications Generic Name Dose Route Start Last Admin Trade Name Freq PRN Reason Stop Dose Admin Acetaminophen 650 mg 12/08/23 11:52 Acetaminophen Tab 325 Mg Tab PO 01/07/24 11:53 Q6HR PRN Mild Pain (Scale 1 to 3) Apixaban 5 mg 12/09/23 09:00 Apixaban 5 Mg Tab PO 01/08/24 09:01 BID [facility] Protocol Atorvastatin Calcium 80 mg 12/09/23 09:00 Atorvastatin 80 Mg Tab PO 01/08/24 09:01 QAM [facility] Dapagliflozin 5 mg 12/09/23 09:00 Dapagliflozin Propanediol 5 Mg Tablet PO 01/08/24 09:01 QAM [facility] Sodium Chloride 1,000 mls @ 50 mls/hr 12/08/23 05:58 Saline 0.9% IV 01/07/24 05:59 .Q20H [facility] Acetaminophen 1,000 mg/ IV 100 mls @ 400 mls/hr 12/08/23 11:52 Solution IVPB 12/08/23 12:06 ONCE ONE Sodium Chloride 12 ml 12/08/23 11:52 Sodium Chloride 0.9% Flush 10 Ml Syringe IV 01/07/24 11:53 Q12HR PRN Line Flush Spironolactone 25 mg 12/09/23 09:00 Spironolactone 25 Mg Tab PO 01/08/24 09:01 QAM [facility] Ticagrelor 90 mg 12/08/23 21:00 Ticagrelor 90 Mg Tab PO 01/07/24 21:01 BID [facility] Valsartan 160 mg 12/08/23 21:00 Valsartan 160 Mg Tab PO 01/07/24 21:01 BID [facility] Intake and Output 12/07/23 12/08/23 12/08/23 22:59 06:59 14:59 Intake Total 50 1400 Balance 50 1400 Intake: IV 50 1400 Other: Weight 100.5 kg
--- NOTE | 2023-12-08 12:34 | P.EPPROC ---
- EP Procedure Note Electrophysiology Procedure Note: PROCEDURE A. fib ablation PVI, left atrial roof ablation, mitral isthmus ablation along the anterior wall DIAGNOSIS Persistent atrial fibrillation, symptomatic, refractory to therapy Sick sinus syndrome, AV node disease, status post atrial flutter ablation in the past RESULT No left atrial appendage mass seen on intracardiac echo, preserved LV systolic function, prominent pericardium without effusion or exudate Successful A. fib ablation/pulmonary vein isolation of all veins using cryo- ablation Complete entrance block in all 4 veins confirmed Inducible atrial tachycardia using the mitral isthmus and the left atrial roof Voltage mapping revealed left atrial posterior wall scar, patchy, roof scar, anterior wall scar with isthmus resulting in reentry Counterclockwise reentrant circuit through the gap in the scar on the anterior wall along the mitral isthmus and secondarily sweeping across the left atrial roof Successful ablation of the left atrial roof Successful ablation of the mitral isthmus with an anterior mitral isthmus line with termination No evidence for phrenic nerve injury Esophageal deflection YES PROCEDURE DETAILS Written informed consent prior to procedure. Patient brought to the EP lab. General anesthesia given. Heparin administered. A city maintained above 300 seconds Both groins prepped and draped per protocol and venous sheaths placed. Esophagus intubated, circa catheter for temperature monitoring an endoscope for possible esophageal deflection. Phrenic nerve monitoring performed. Esophageal temperature monitoring performed. Esophageal deflection performed if circa catheter overlapping with the balloon or circa temperature less than 27.5C Intracardiac echocardiography performed. Pericardium evaluated. Left atrial appendage evaluated. Left atrium evaluated along with pulmonary veins Transseptal catheterization performed under fluoroscopic guidance and intracardiac echo guidance Cryoablation sheath exchanged, balloon catheter along with achieve catheter placed in the left atrium. Pulmonary veins isolated in the following sequence: Left superior pulmonary vein followed by left inferior pulmonary vein, followed by right inferior pulmonary vein and lastly right superior pulmonary vein. Phrenic nerve stimulation along with capture thresholds within the SVC and right superior pulmonary vein to identify the phrenic nerve proximity to the cryo- balloon. Pulmonary veins isolated and confirmed with entrance and exit block. Phrenic nerve integrity confirmed at the end of the procedure Diagnostic EP study with both stimulation and atrial extra stimulation from the high right atrium resulting in induction of an atrial tachycardia with a cycle length of about 330 ms, concentric activation Activation mapping performed along with voltage mapping Voltage mapping revealed intrinsic patchy scar in the posterior wall, partial scar in the left atrial roof unrelated to PVI and scar on the anterior wall of the left atrium with a This Was the primary reentrant circuit isthmus which secondarily utilized the left atrial roof gap Ablation along the left atrial roof performed successfully with noncapture along the line Ablation along the anterior LA wall with termination of the tachycardia when the isthmus/gap in the scar was ablated Diagnostic catheters for the high right atrium, His bundle, coronary sinus placed. LA and RA pressures recorded RA pressure: 12/0/6 LA pressure: 16/0/8 Diagnostic EP study with coronary sinus pacing and recording Baseline measurements: Sinus cycle length 1100, ME interval 258 ms, QRS 100 ms and QT 440 ms Sinus node recovery times consistent with sinus node entrance block AV node Wenckebach block 710 ms Burst stimulation performed and atrial extra stimulation up to double extrastimuli performed Venous sheaths were removed and hemostasis assured with a closure device. Patie nt extubated and transferred to recovery Perclose for the right femoral vein access site Increase procedural time Large pulmonary veins were noted. Right middle vein was noted. Multiple short duration ablations performed on the right side to allow for antral level isolation Thick septum/divina noted between the left superior and left inferior pulmonary veins with successful ablation and additional posterior wall RF linear ablation for complete isolation PROCEDURES PERFORMED Diagnostic EP study CS pacing and recording Left and right transseptal catheterization Catheter the mapping of the tachycardia Intracardiac echocardiography Pulmonary vein isolation with transseptal and comprehensive EPS, [id number] Extended procedure duration Left atrial roof line, [id number] Linear ablation, left atrium anterior wall/mitral isthmus line/ablation of the isthmus of the reentrant circuit, [id number]
[2023-12-08] MEDS ORDERED: ONDANSETRON 4 MG/2 ML VIAL ONE (13:30)
[2023-12-08 13:45] LABS: Glucose,Whole Blood 150 mg/dL (70-110)
[2023-12-08] MEDS: ACETAMINOPHEN IV (For NPO) 1,000 MG in EMPTY BAG 1 BAG IVPB ONE (14:36)
[2023-12-08] MEDS: SODIUM CHLORIDE 0.9% 1,000 ML IV SCH (14:37)
[2023-12-08] MEDS: APIXABAN 2.5 MG TABLET PO ONE (20:15)
[2023-12-08] MEDS: VALSARTAN 160 MG TAB PO SCH (20:15)
[2023-12-08] MEDS: TICAGRELOR 90 MG TAB PO SCH (20:15)
[2023-12-08] MEDS ORDERED: APIXABAN 5 MG TAB PO SCH (21:00)
[2023-12-08 21:09] LABS: Glucose,Whole Blood 124 mg/dL (70-110)
[2023-12-09 00:54] VITALS: TEMP 98.2
[2023-12-09 07:36] VITALS: BP 130/68
[2023-12-09] MEDS: DAPAGLIFLOZIN PROPANEDIOL 5 MG TABLET PO SCH (09:04)
[2023-12-09] MEDS: SPIRONOLACTONE 25 MG TAB PO SCH (09:04)
[2023-12-09] MEDS: ATORVASTATIN 80 MG TAB PO SCH (09:04)
[2023-12-09] MEDS: APIXABAN 5 MG TAB PO SCH (09:05)
[2023-12-09 10:38] VITALS: PULSE 57
--- NOTE | 2023-12-09 12:33 | P.DS ---
Providers Attending physician: Jacky Rawls Primary care physician: Ehsan Michelle MD Hospital Course: Patient is doing well. His chest pain today is a lot better His sore throat also has improved He is sitting up in the chair walking around the room No dizziness lightheadedness Minimal to no discomfort in the groins Blood pressure 130/68 mmHg pulse rate in the 50s Heart sounds are normal breath sounds are clear no rhonchi no crackles His groins have healed well there is a very small hematoma on the left side, no hematoma on the right side No tenderness Impression Left atrial voltage mapping revealed 1. patchy scar in the posterior wall of the left atrium as well as 2. scar in the left atrial roof and in the 3. anterior wall of the LA, unrelated to any previous ablation 4. Gap in the scar in the anterior wall of the LA, serving as an isthmus for the reentrant focus Persistent atrial fibrillation status post PVI Diagnosis EP study performed thereafter induced an atrial tachycardia. The reentrant circuit involved in isthmus and the anterior wall, sweeping around the mitral annulus and secondarily sweeping around the left atrial roof Anterior LA ablation was performed with termination of the tachycardia Left atrial roof was ablated Previously has undergone coronary stenting Previously he has undergone typical atrial flutter ablation His left groin was oozing yesterday and therefore FemoStop was used There is minimal hematoma now The patient has been warned and instructed about avoiding heavy lifting for about 1 week He will continue his anticoagulation He will continue Brilinta Sick sinus syndrome, AV node disease, not on beta-blockers Plan Continue anticoagulation and antiplatelet therapy Continue statins No beta-blockers since he has sick sinus syndrome and first-degree AV block and sometimes intermittent AV node Wenckebach block Outpatient Holter monitoring to look for significant bradycardia He does have a history of cardiomyopathy, ischemic in nature and a follow-up echo in 3 to 4 months to reassess LV function in sinus rhythm Patient Condition at Discharge: Good Plan - Discharge Summary Discharge Rx Participant: No New Discharge Prescriptions: No Action Apixaban [Eliquis] 5 mg PO BID Dapagliflozin Propanediol [Farxiga] 5 mg PO QAM Spironolactone 25 mg PO QAM Atorvastatin [Lipitor] 80 mg PO QAM Ticagrelor [Brilinta] 90 mg PO BID #60 tab Valsartan 160 mg PO BID Discharge Medication List Ticagrelor [Brilinta] 90 mg PO BID #60 tab 04/08/23 [Rx] Apixaban [Eliquis] 5 mg PO BID 09/30/23 [History] Dapagliflozin Propanediol [Farxiga] 5 mg PO QAM 11/20/23 [History] Spironolactone 25 mg PO QAM 11/20/23 [History] Valsartan 160 mg PO BID 11/20/23 [History] Atorvastatin [Lipitor] 80 mg PO QAM 12/03/23 [History] Follow up Appointment(s)/Referral(s): Jacky Rawls MD [STAFF PHYSICIAN] - 12/16/23 10:30 am Patient Instructions/Handouts: A-fib (Atrial Fibrillation) (IP), Electrophysiology Study (GEN) Activity/Diet/Wound Care/Special Instructions: rest for next week no excessive stair use watch for signs of bleeding no driving next 3 days may shower Discharge Disposition: HOME SELF-CARE
== END 2023-12-09 11:20 | disposition home or self-care (01) ==
LOC: CATHEP 05:45 → 6NMEDSUR 17:13 → CATHEP 12-09 11:20
PROVIDERS: ATTEND Internal Medicine Clinical Cardiac Electrophysiology
DX: I49.5 Sick sinus syndrome (principal); E78.5 Hyperlipidemia, unspecified; I10 Essential (primary) hypertension; I25.10 Atherosclerotic heart disease of native coronary artery without angina pectoris; I25.5 Ischemic cardiomyopathy; I48.19 Other persistent atrial fibrillation; Z79.01 Long term (current) use of anticoagulants; Z79.02 Long term (current) use of antithrombotics/antiplatelets; Z79.84 Long term (current) use of oral hypoglycemic drugs; Z86.73 Personal history of transient ischemic attack (TIA), and cerebral infarction without residual deficits; Z95.5 Presence of coronary angioplasty implant and graft; Z98.890 Other specified postprocedural states
CPT/HCPCS: 93655; 93656; 93657; 86900; 86901; 86850; C1759; C1894 ×2; C1769 ×3; C1760 ×2; C1730 ×2; C1731; C1893; C1733; C1766; C1732; J2001; J1644 ×2; J0131; Q9967

== ENCOUNTER 2024-07-02 22:34 | Inpatient (IN) | payer MEDICARE ==
--- NOTE | 2024-07-02 22:50 | ED ---
Chest Pain HPI - General Chief Complaint: Chest Pain Stated Complaint: Cardiac arrest Time Seen by Provider: 07/02/24 22:38 Source: family Mode of arrival: ambulatory Limitations: no limitations - History of Present Illness Initial Comments: This patient is a 74-year-old man with history of previous [place] who presents with complaint that he is having upper chest pain radiating to the back. The patient had a brief episode last night and then states that it came on and was continuous starting about 3 hours ago. The patient states that he was at rest when the pain came. He has had a little bit of nausea. He states that there has been a little bit of nonproductive cough starting about an hour ago. Patient states that this is a different sensation than when he had his TN. MD Complaint: chest pain -: hour(s) Onset: during rest Pain Location: substernal Pain Radiation: back Severity: severe Quality: tightness, aching Consistency: constant Improves With: nothing Worsens With: nothing Anginal Symptoms: nausea Other Symptoms: cough Treatments Prior to Arrival: none - Related Data Home Medications Medication Instructions Recorded Confirmed Apixaban [Eliquis] 5 mg PO BID 09/30/23 07/03/24 Spironolactone 25 mg PO DAILY 11/20/23 07/03/24 Valsartan 160 mg PO DAILY 11/20/23 07/03/24 Atorvastatin [Lipitor] 80 mg PO HS 12/03/23 07/03/24 Clopidogrel [Plavix] 75 mg PO DAILY 07/03/24 07/03/24 Nitrofurantoin Monohyd/M-Cryst 100 mg PO BID 07/03/24 07/03/24 [Macrobid] Previous Rx's Medication Instructions Recorded Aspirin 81 mg PO DAILY 7 Days #7 tab 07/05/24 Dapagliflozin Propanediol [Farxiga] 10 mg PO DAILY 30 Days #30 tab 07/05/24 Nitroglycerin Sl Tabs [Nitrostat] 0.4 mg SUBLINGUAL Q5M PRN #30 tab 07/05/24 Allergies Allergy/AdvReac Type Severity Reaction Status Date / Time Penicillins Allergy Rash/Hives Verified 07/03/24 08:50 Review of Systems ROS Statement: Those systems with pertinent positive or pertinent negative responses have been documented in the HPI. ROS Other: All systems not noted in ROS Statement are negative. Constitutional: Denies: fever, chills, weakness Respiratory: Reports: cough. Denies: dyspnea Cardiovascular: Reports: chest pain. Denies: palpitations, orthopnea, edema Gastrointestinal: Reports: nausea. Denies: abdominal pain, vomiting, diarrhea Genitourinary: Denies: dysuria, hematuria Musculoskeletal: Denies: back pain Skin: Denies: rash Neurological: Denies: headache, weakness, numbness EKG Findings - EKG Results: EKG: interpreted by ERMD (63 bpm), sinus rhythm, normal axis, normal ST/T - Blocks, Cranberry, Hypertrophy, ST Abn: AV and intraventricular conduction: 1 AV block - [place], Pacemaker, Normal: Myocardial infarction: septal TN (old age or indeterminate) Past Medical History Past Medical History: Atrial Fibrillation, Coronary Artery Disease (CAD), Hyperlipidemia, Hypertension, Renal Disease, Syncope Additional Past Medical History / Comment(s): See Dr. Rawls's H&P. kidney stones/surgically removed, symptomatic bradycardia - History of Any Multi-Drug Resistant Organisms: None Reported Past Surgical History: Cardiac Ablation, Heart Catheterization, Heart Catheterization With Stent, Orthopedic Surgery Additional Past Surgical History / Comment(s): Cardioversion, arthroscopic surgery bilateral knees, lithotripsy Past Anesthesia/Blood Transfusion Reactions: Postoperative Nausea & Vomiting (PONV) Additional Past Anesthesia/Blood Transfusion Reaction / Comment(s): difficult to arouse Date of Last Stent Placement:: 2022 Past Psychological History: No Psychological Hx Reported Smoking Status: Never smoker Past Alcohol Use History: Rare Past Drug Use History: None Reported - Past Family History Father Family Medical History: Cancer, Diabetes Mellitus, Hyperlipidemia, Hypertension, Myocardial Infarction ([place]) Additional Family Medical History / Comment(s): prostate. passed Mother Family Medical History: CVA/TIA, Diabetes Mellitus, Hypertension Additional Family Medical History / Comment(s): multiple TIAS. complication of CVA. aspiration General Exam Limitations: no limitations General appearance: alert, in no apparent distress Head exam: Present: atraumatic, normocephalic Eye exam: Present: normal appearance. Absent: scleral icterus, conjunctival injection ENT exam: Present: normal oropharynx Neck exam: Present: normal inspection Respiratory exam: Present: normal lung sounds bilaterally. Absent: respiratory distress, wheezes, rales, rhonchi, stridor, accessory muscle use Cardiovascular Exam: Present: regular rate, normal rhythm, systolic murmur. Absent: diastolic murmur, rubs, gallop GI/Abdominal exam: Present: soft. Absent: distended, tenderness, guarding, rebound, rigid, mass, pulsatile mass Extremities exam: Present: normal inspection, normal capillary refill. Absent: pedal edema, calf tenderness Back exam: Present: normal inspection. Absent: CVA tenderness (R), CVA tenderness (L) Neurological exam: Present: alert Skin exam: Present: warm, dry, intact, normal color. Absent: rash Course Vital Signs 07/02/24 07/02/24 07/02/24 22:35 22:45 23:00 Temperature 97.9 F Pulse Rate 64 65 61 Respiratory 18 22 18 Rate Blood Pressure 208/121 181/113 168/106 O2 Sat by Pulse 100 99 99 Oximetry 07/02/24 07/03/24 07/03/24 23:34 00:00 01:00 Temperature Pulse Rate 59 L 56 L 53 L Respiratory 18 20 14 Rate Blood Pressure 163/98 158/90 139/95 O2 Sat by Pulse 99 100 98 Oximetry 07/03/24 07/03/24 07/03/24 07:41 08:07 10:11 Temperature 97.4 F L Pulse Rate 59 L 59 L 58 L Respiratory 18 18 18 Rate Blood Pressure 144/96 143/90 141/89 O2 Sat by Pulse 98 98 100 Oximetry 07/03/24 07/03/24 07/03/24 10:30 11:34 12:25 Temperature Pulse Rate 55 L 60 60 Respiratory 18 18 18 Rate Blood Pressure 141/89 151/24 151/24 O2 Sat by Pulse 98 98 98 Oximetry Chest Pain MDM - MDM The patient had CT scan of the chest and abdomen which I interpreted as negative for acute aortic dissection, negative for PE. Was pt. sent in by a medical professional or institution (, PA, HUMAN RESOURCES DEPARTMENT SUPERVISOR, urgent care, hospital, or senior living...) When possible be specific @ -[No] Did you speak to anyone other than the patient for history (EMS, parent, family, police, friend...)? What history was obtained from this source @ -[No] Did you review nursing and triage notes (agree or disagree)? Why? @ -[I reviewed and agree with nursing and triage notes] Were old charts reviewed (outside hosp., previous admission, EMS record, old EKG, old radiological studies, urgent care reports/EKG's, senior living records)? Report findings @ -[No old charts were reviewed] Differential Diagnosis (chest pain, altered mental status, abdominal pain women, abdominal pain men, vaginal bleeding, weakness, fever, dyspnea, syncope, he adache, dizziness, GI bleed, back pain, seizure, CVA, palpatations, mental health, musculoskeletal)? @ -[Differential Chest Pain: Stable Angina, Unstable Angina, STEMI, NSTEMI Aortic Dissection, Pneumothorax, Musculoskeletal, Esophageal Spasm GERD, Cholecystitis, Pancreatitis, Zoster, this is not meant to be an all-inclusive list. EKG interpreted by me (3pts min.). @ -[I interpreted as above] X-rays interpreted by me (1pt min.). @ -[None done] CT interpreted by me (1pt min.). @ -[I interpreted as above U/S interpreted by me (1pt. min.). @ -[None done] What testing was considered but not performed or refused? (CT, X-rays, U/S, labs)? Why? @ -[None] What meds were considered but not given or refused? Why? @ -[None] Did you discuss the management of the patient with other professionals (professionals i.e. , PA, HUMAN RESOURCES DEPARTMENT SUPERVISOR, lab, RT, psych nurse, marriage and family social worker, supervisor inspection department, teacher, animal park code enforcement officer, wrapper caser)? Give summary @ -[Case discussed with admitting physician and also with the chemical operator on- call who will see the patient Was smoking cessation discussed for >3mins.? @ -[No] Was critical care preformed (if so, how long)? @ -[Yes, 30 minutes Were there social determinants of health that impacted care today? How? (Homelessness, low income, unemployed, alcoholism, drug addiction, transportation, low edu. Level, literacy, decrease access to med. care, nursing home, rehab)? @ -[No] Was there de-escalation of care discussed even if they declined (Discuss DNR or withdrawal of care, Hospice)? DNR status @ -[No] What co-morbidities impacted this encounter? (DM, HTN, Smoking, COPD, CAD, Cancer, CVA, ARF, Chemo, Hep., AIDS, mental health diagnosis, sleep apnea, morbid obesity)? @ -[Hypertension, previous CAD Was patient admitted / discharged? Hospital course, mention meds given and route, prescriptions, significant lab abnormalities, going to OR and other pertinent info. @ -[Patient is a 74-year-old man who is here to have evaluation for chest pain going on for 2 days now. The patient is markedly hypertensive on arrival and given the radiation of pain, has CT scan to rule out dissection. The patient's ECG is not consistent with STEMI. He does have elevated troponin, case discussed with cardiology and patient will be seen by them and is started on heparin. Undiagnosed new problem with uncertain prognosis? @ -[No] Drug Therapy requiring intensive monitoring for toxicity (Heparin, Nitro, Insulin, Cardizem)? @ -[Heparin Were any procedures done? @ -[No] Diagnosis/symptom? @ -[Acute chest pain NSTEMI Acute, or Chronic, or Acute on Chronic? @ -[Acute Uncomplicated (without systemic symptoms) or Complicated (systemic symptoms)? @ -[Uncomplicated Side effects of treatment? @ -[No] Exacerbation, Progression, or Severe Exacerbation? @ -[No] Poses a threat to life or bodily function? How? (Chest pain, [place], [place], pneumonia, PE, COPD, DKA, ARF, appy, cholecystitis, CVA, Diverticulitis, Homicidal, Suicidal, threat to staff... and all critical care pts) @ -[Yes All treatments are based on ideal body weight as in ED triage Disposition Clinical Impression: Hypertension, NSTEMI (non-ST elevated myocardial infarction) Disposition: ADMITTED IP TO THIS HOSP Condition: Good Is patient prescribed a controlled substance at d/c from ED?: No
[2024-07-02 23:11] LABS: Basophils # (A) 0.1 k/uL (0-0.2); Basophils % (A) 1 %; Eosinophils # (A) 0.3 k/uL (0-0.7); Eosinophils % (A) 3 %; HCT 49.6 % (39.0-53.0); HGB 16.5 gm/dL (13.0-17.5); Lymphocytes # (A) 2.9 k/uL (1.0-4.8); Lymphocytes % (A) 26 %; MCH 30.5 pg (25.0-35.0); MCHC 33.4 g/dL (31.0-37.0); MCV 91.5 fL (80.0-100.0); Mean Platelet Volume 9.1; Monocytes # (A) 0.6 k/uL (0-1.0); Monocytes % (A) 6 %; Neutrophils % (A) 63 %; Platelet Count 193 k/uL (150-450); RBC 5.42 m/uL (4.30-5.90); RDW 12.6 % (11.5-15.5); WBC 11.2 k/uL (3.8-10.6)
[2024-07-02 23:23] LABS: Partial Thromboplastin Time 22.8 sec (22.0-30.0)
[2024-07-02] MEDS: NITROGLYCERIN OINT 1 INCH/GM PACKET TOPICAL STA (23:40)
[2024-07-02] MEDS: ASPIRIN 81 MG PO STA (23:40)
[2024-07-02 23:49] LABS: ALT 39 U/L (4-49); AST 33 U/L (17-59); African American GFR (CKD) 76 (>60 ml/min/1.73 sqM); Albumin 4.9 g/dL (3.5-5.0); Alkaline Phosphatase 92 U/L (38-126); Amylase 56 U/L (30-110); Anion Gap 11 mmol/L; Blood Urea Nitrogen 25 mg/dL (9-20); Calcium 10.2 mg/dL (8.4-10.2); Carbon Dioxide 17 mmol/L (22-30); Chloride 110 mmol/L (98-107); Glucose 176 mg/dL (74-99); Lipase 69 U/L (23-300); Magnesium 1.9 mg/dL (1.6-2.3); Non-African American GFR(CKD) 66 (>60 ml/min/1.73 sqM); Potassium 3.9 mmol/L (3.5-5.1); Sodium 138 mmol/L (137-145); Total Protein 7.4 g/dL (6.3-8.2)
[2024-07-03] MEDS ORDERED: HEPARIN SODIUM 1,000 UN/ML (10ML VL) IV PRN (01:06)
[2024-07-03] MEDS ORDERED: NITROGLYCERIN SL TABS 0.4 MG TAB SUBLINGUAL PRN ×2 (01:07→09:00)
--- NOTE | 2024-07-03 01:22 | CT ---
EXAM: CT Angiography Chest Without and With Intravenous Contrast CLINICAL HISTORY: chest pain, possible dissection TECHNIQUE: Axial computed tomographic angiography images of the chest without and with intravenous contrast using aortic dissection protocol. CTDI is 86.9 mGy and DLP is 1876.7 mGy-cm. This CT exam was performed using one or more of the following dose reduction techniques: automated exposure control, adjustment of the mA and/or kV according to patient size, and/or use of iterative reconstruction technique. MIP reconstructed images were created and reviewed. COMPARISON: No relevant prior studies available. FINDINGS: Aorta: The thoracic aorta is normal in caliber, with the mid a sending aorta measuring 3.7 x 3.7 cm. The aortic arch and descending aorta are normal in caliber. No dissection, intimal wall abnormality on precontrast imaging or acute periaortic abnormality identified. Pulmonary arteries: No large/central pulmonary embolism, accounting for suboptimal enhancement pattern. Great vessels of aortic arch: No acute findings. No dissection. No arterial occlusion or significant stenosis. Lungs: No focal airspace consolidation. There is a 5.9 mm noncalcified pulmonary nodule in the posterior medial left lower lobe (series 501; image 114). Pleural space: Unremarkable. No significant effusion. No pneumothorax. Heart: Global cardiomegaly. Prominent coronary artery calcification. No pericardial effusion. Bones/joints: No acute fracture. No dislocation. Soft tissues: Unremarkable. Lymph nodes: Unremarkable. No enlarged lymph nodes. IMPRESSION: 1. The thoracic aorta is normal in caliber, with the mid a sending aorta measuring 3.7 x 3.7 cm. The aortic arch and descending aorta are normal in caliber. No dissection, intimal wall abnormality on precontrast imaging or acute periaortic abnormality identified. 2. Global cardiomegaly. Prominent coronary artery calcification. No pericardial effusion. 3. No focal airspace consolidation. There is a 5.9 mm noncalcified pulmonary nodule in the posterior medial left lower lobe (series 501; image 114). Fleischner Society Guidelines (MacMahon, et al. Radiology 2017; 284(1):228-43) suggest that no follow-up is necessary for patients with a low or high risk of malignancy. EXAM: CT Angiography Abdomen and Pelvis Without and With Intravenous Contrast CLINICAL HISTORY: chest pain, possible dissection TECHNIQUE: Axial computed tomographic angiography images of the abdomen and pelvis without and with intravenous contrast. CTDI is 34.9 mGy and DLP is 1797. 9 mGy-cm. This CT exam was performed using one or more of the following dose reduction techniques: automated exposure control, adjustment of the mA and/or kV according to patient size, and/or use of iterative reconstruction technique. MIP reconstructed images were created and reviewed. COMPARISON: No relevant prior studies available. FINDINGS: VASCULATURE: Aorta: The abdominal aorta is normal in caliber without dissection or aneurysm. No intimal wall abnormality identified on precontrast imaging. No acute periaortic abnormality identified. Celiac trunk and mesenteric arteries: No acute findings. No occlusion or significant stenosis. Renal arteries: No acute findings. No occlusion or significant stenosis. Iliac arteries: No acute findings. No occlusion or significant stenosis. Lung bases: Unremarkable. No mass. No consolidation. ABDOMEN: Liver: Hepatic steatosis. Low attenuation focus in the liver which may be due to a cyst but is too small to characterize. Gallbladder and bile ducts: Unremarkable. No calcified stones. No ductal dilation. Pancreas: Unremarkable. No ductal dilation. No mass. Spleen: Unremarkable. No splenomegaly. Adrenals: Unremarkable. No mass. Kidneys and ureters: Nonobstructive nephrolithiasis noted involving the inferior pole the left kidney measuring up to 8 mm. No pyelonephritis or hydronephrosis noted. There are areas of cortical atrophy involving the lateral aspect of the midpole left kidney. Multiple cortical cysts are noted on the right, measuring up to 6 x 6.3 cm inferomedially. The largest cyst superiorly and anteriorly on the left measures 1.4 cm. No appreciable internal complex features or solid components. Stomach and bowel: No bowel obstruction identified involving the partially included bowel loops in the abdomen and superior pelvis. Moderate stool burden. No appreciable diverticulitis. PELVIS: Appendix: No evidence for appendicitis. Bladder: Unremarkable. No stones. No mass. Reproductive: Unremarkable as visualized. ABDOMEN and PELVIS: Intraperitoneal space: Unremarkable. No significant fluid collection. No free air. Bones/joints: No acute fracture. No dislocation. Soft tissues: Unremarkable. Lymph nodes: Unremarkable. No enlarged lymph nodes. IMPRESSION: 1. The abdominal aorta is normal in caliber without dissection or aneurysm. No intimal wall abnormality identified on precontrast imaging. No acute periaortic abnormality identified. 2. Presumed incidental renal findings, as detailed above.
[2024-07-03] MEDS: LABETALOL 5 MG/ML VIAL MDV IVP STA (01:35)
[2024-07-03] MEDS: HEPARIN SOD,PORK IN 0.45% NACL 25,000 UNIT in 0.45% NACL 1 250ML.BAG IV SCH (01:58)
[2024-07-03] MEDS: HEPARIN SODIUM 1,000 UN/ML (10ML VL) IV ONE ×2 (01:59→12:16)
[2024-07-03] MEDS: NOREPINEPHRINE 4 MG in SODIUM CHLORIDE 0.9% 250 ML IV ONE (06:52)
[2024-07-03] MEDS ORDERED: ALPRAZolam 0.5 MG TAB PO PRN (09:00)
[2024-07-03] MEDS ORDERED: ALPRAZolam 0.25 MG TAB PO PRN (09:00)
[2024-07-03] MEDS: ATORVASTATIN 80 MG TAB PO STA (10:13)
[2024-07-03] MEDS: SPIRONOLACTONE 25 MG TAB PO SCH (10:13)
[2024-07-03] MEDS: ASPIRIN 325 MG TAB PO STA (10:13)
[2024-07-03] MEDS: CLOPIDOGREL 75 MG TAB PO SCH (10:13)
[2024-07-03] MEDS: DAPAGLIFLOZIN PROPANEDIOL 10 MG TABLET PO SCH (10:13)
[2024-07-03] MEDS: SODIUM CHLORIDE 0.9% 1,000 ML in EMPTY BAG 1 BAG IV SCH (10:23)
--- NOTE | 2024-07-03 11:04 | P.HPIM ---
History of Present Illness H&P Date: 07/03/24 History of present illness; patient is a 74-year-old gentleman with past medical history significant for coronary disease who presented the ER for chest pain. Patient stated he was all right yesterday when started having chest pain that was central in location, radiating to the back not associated with exertion, no aggravating or relieving factor associated with chest pain. Patient stated that initially chest pain was intermittent but later on it became constant and has been going of the last 3 hours. Patient was complaining of nausea at the time. Patient also stated he was short of breath on exertion, had a hard time going up a flight of stairs. Denies any palpitation. There is no complaint of orthopnea or PND. Because of the chest pain, the patient came to the ER Initial lab work done in the ER showed was 11.2, hemoglobin 16.5, platelet count 193, sodium 138, potassium 3.9, BUN 25, creatinine 1.10, troponin 0.082 lipase 69 CTA chest abdomen done showed thoracic aorta normal in caliber with a mid ascending aorta measuring 3.7 x 3.7 cm the aortic arch and descending aorta are normal in caliber, no dissection. Global cardiomegaly, no focal airspace consolidation, there is a 5.9 mm noncalcified pulm nodule in the posterior medial left lower lobe. Abdominal aorta is normal caliber without dissection or aneurysm. No acute periaortic abnormality identified. EKG done in the ER showed heart rate of 63, no ST segment elevation or depression seen, no T-wave inversions seen. Patient admitted to internal medicine service REVIEW OF SYSTEMS: CONSTITUTIONAL: No fever, no malaise, no fatigue. HEENT: No recent visual problems or hearing problems. Denied any sore throat. CARDIOVASCULAR: As mentioned above PULMONARY: As mentioned above GASTROINTESTINAL: No diarrhea, no nausea, no vomiting, no abdominal pain. NEUROLOGICAL: No headaches, no weakness, no numbness. HEMATOLOGICAL: Denies any bleeding or petechiae. GENITOURINARY: Denies any burning micturition, frequency, or urgency. MUSCULOSKELETAL/RHEUMATOLOGICAL: Denies any joint pain, swelling, or any muscle pain. ENDOCRINE: Denies any polyuria or polydipsia. The rest of the 14-point review of systems is negative. PHYSICAL EXAMINATION: GENERAL: The patient is alert and oriented x3, not in any acute distress. Well developed, well nourished. HEENT: Pupils are round and equally reacting to light. EOMI. No scleral icterus. No conjunctival pallor. Normocephalic, atraumatic. No pharyngeal erythema. No thyromegaly. CARDIOVASCULAR: S1 and S2 present. No murmurs, rubs, or gallops. PULMONARY: Chest is clear to auscultation, no wheezing or crackles. ABDOMEN: Soft, nontender, nondistended, normoactive bowel sounds. No palpable organomegaly. MUSCULOSKELETAL: No joint swelling or deformity. EXTREMITIES: No cyanosis, clubbing, or pedal edema. NEUROLOGICAL: Gross neurological examination did not reveal any focal deficits. SKIN: No rashes. Assessment and plan NSTEMI Hypertension Hyperlipidemia History of coronary artery disease Monitor vital signs Monitor CBC Monitor CMP Continue telemetry monitoring Ordered 2D echo Ordered aspirin, Lipitor, Plavix Ordered pharmacy dose heparin Resume home medicine of Aldactone and valsartan consult cardiology Labs and medication were reviewed.. Continue same treatment. Continue with symptomatic treatment. Resume home medication. Monitor labs and vitals. DVT and GI prophylaxis. Further recommendations as per clinical course of the patient Dictation was produced using [employer] dictation software. please excuse any grammatical, word or spelling errors. Past Medical History Past Medical History: Atrial Fibrillation, Coronary Artery Disease (CAD), Hyperlipidemia, Hypertension, Renal Disease, Syncope Additional Past Medical History / Comment(s): See Dr. Rawls's H&P. kidney stones/surgically removed, symptomatic bradycardia - History of Any Multi-Drug Resistant Organisms: None Reported Past Surgical History: Cardiac Ablation, Heart Catheterization, Heart Catheterization With Stent, Orthopedic Surgery Additional Past Surgical History / Comment(s): Cardioversion, arthroscopic surgery bilateral knees, lithotripsy Past Anesthesia/Blood Transfusion Reactions: Postoperative Nausea & Vomiting (PONV) Additional Past Anesthesia/Blood Transfusion Reaction / Comment(s): difficult to arouse Date of Last Stent Placement:: 2022 Past Psychological History: No Psychological Hx Reported Smoking Status: Never smoker Past Alcohol Use History: Rare Past Drug Use History: None Reported - Past Family History Father Family Medical History: Cancer, Diabetes Mellitus, Hyperlipidemia, Hypertension, Myocardial Infarction ([place]) Additional Family Medical History / Comment(s): prostate. passed Mother Family Medical History: CVA/TIA, Diabetes Mellitus, Hypertension Additional Family Medical History / Comment(s): multiple TIAS. complication of CVA. aspiration Medications and Allergies Home Medications Medication Instructions Recorded Confirmed Type Apixaban [Eliquis] 5 mg PO BID 09/30/23 07/03/24 History Spironolactone 25 mg PO DAILY 11/20/23 07/03/24 History Valsartan 160 mg PO DAILY 11/20/23 07/03/24 History Atorvastatin [Lipitor] 80 mg PO HS 12/03/23 07/03/24 History Clopidogrel [Plavix] 75 mg PO DAILY 07/03/24 07/03/24 History Dapagliflozin Propanediol [Farxiga] 5 mg PO DAILY 07/03/24 07/03/24 History Nitrofurantoin Monohyd/M-Cryst 100 mg PO BID 07/03/24 07/03/24 History [Macrobid] Allergies Allergy/AdvReac Type Severity Reaction Status Date / Time Penicillins Allergy Rash/Hives Verified 07/03/24 08:50 Physical Exam Vitals: Vital Signs Temp Pulse Resp BP Pulse Ox 07/03/24 10:11 58 L 18 141/89 100 07/03/24 08:07 59 L 18 143/90 98 07/03/24 07:41 97.4 F L 59 L 18 144/96 98 07/03/24 01:00 53 L 14 139/95 98 07/03/24 00:00 56 L 20 158/90 100 07/02/24 23:34 59 L 18 163/98 99 07/02/24 23:00 61 18 168/106 99 07/02/24 22:45 65 22 181/113 99 07/02/24 22:35 97.9 F 64 18 208/121 100 Intake and Output 07/02/24 07/03/24 07/03/24 22:59 06:59 14:59 Other: Weight 81.647 kg Results CBC & Chem 7: 07/02/24 22:48 07/02/24 22:48 Labs: Abnormal Lab Results - Last 24 Hours (Table) 07/02/24 07/02/24 07/02/24 Range/Units 22:48 22:48 22:48 WBC 11.2 H (3.8-10.6) k/uL APTT (22.0-30.0) sec Chloride 110 H (98-107) mmol/L Carbon Dioxide 17 L (22-30) mmol/L BUN 25 H (9-20) mg/dL Glucose 176 H (74-99) mg/dL Troponin I 0.082 H* (0.000-0.034) ng/mL 07/03/24 07/03/24 07/03/24 Range/Units 02:51 07:28 07:28 WBC (3.8-10.6) k/uL APTT 33.2 H (22.0-30.0) sec Chloride (98-107) mmol/L Carbon Dioxide (22-30) mmol/L BUN (9-20) mg/dL Glucose (74-99) mg/dL Troponin I 0.568 H* 1.990 H* (0.000-0.034) ng/mL
--- NOTE | 2024-07-03 11:24 | P.CRDCN ---
History of Present Illness History of present illness: HISTORY OF PRESENT ILLNESS: This is a 74-year-old male with a past medical history significant for coronary artery disease with previous stenting of the LAD, hypertension, hyperlipidemia, atrial flutter/atrial fibrillation, sick sinus syndrome, and previous ablation. Patient follows in the office with Dr. Rawls. We have been asked to see the patient in consultation for elevated troponins. Patient examined at the bedside in the emergency room. Patient states 2 days ago he started having chest discomfort across both sides of his chest. He also reports having some numbness of his chest. He states that the pain went away on its own and he did not have to take anything. He states yesterday he started having chest discomfort again after he drove home from [place]. He states the pain was on the left side of his chest and also radiated into his back. He denied any shortness of breath but does report having a mild cough. He denies any chest pain or pressure at the time of examination. Patient was found to have elevated troponins and was started on IV heparin. DIAGNOSTICS: - EKG reveals sinus mechanism with ST depression inferiorly and also V4V6 -Chest abdomen CTA: Ascending thoracic aorta measuring 3.7 x 3.7 cm. Aortic arch and ascending aorta are normal. No dissection noted. Global cardiomegaly. Prominent coronary artery calcifications. No pericardial effusion. No focal airspace consolidation. 5.9 mm pulmonary nodule. - Laboratory data: WBC 11.2. Hemoglobin 16.5. Platelet count 193. Sodium 138. Potassium 3.9. BUN 25. Creatinine 1.10. Magnesium 1.9. Troponin 0.082. 0.568. 1.990. - Current home cardiac medications include Aldactone 25 mg daily, Lipitor 80 mg daily, Plavix 75 mg daily, Farxiga 5 mg daily, valsartan 160 mg daily, Eliquis 5 mg twice a day - Most recent echocardiogram obtained in March 2024 revealed ejection fraction 50%, mild LVH - Cardiac catheterization history: April 2023 with stenting of the mid LAD. Patient was found to have mild disease of the RCA and left circumflex. REVIEW OF SYSTEMS: At the time of my exam: CONSTITUTIONAL: Denies fever or chills. HEENT: Denies blurred vision, vision changes, or eye pain. Denies hemoptysis CARDIOVASCULAR: Denies chest pain. Denies orthopnea. Denies PND. Denies palpitations RESPIRATORY: Denies shortness of breath. GASTROINTESTINAL: Denies abdominal pain. Denies nausea or vomiting. HEMATOLOGIC: Denies bleeding disorders. GENITOURINARY: Denies any blood in urine. SKIN: Denies pruitis. Denies rash. PHYSICAL EXAM: VITAL SIGNS: Reviewed. GENERAL: Well-developed in no acute distress. HEENT: Head is normocephalic. Pupils are equal, round. Sclerae anicteric. Mucous membranes of the mouth are moist. Neck supple. No JVD or thyromegaly LUNGS: Respirations even and unlabored. Lungs essentially clear to auscultation bilaterally. HEART: Regular rate and rhythm. S1 and S2 heard. ABDOMEN: Soft. Nondistended. Nontender. EXTREMITIES: Normal range of motion. No clubbing or cyanosis. Peripheral pulses intact. No lower extremity edema NEUROLOGIC: Awake and alert. Oriented x 3. ASSESSMENT: Non-STEMI Coronary artery disease with previous stenting of the mid LAD, 04/2023 Hypertension Hyperlipidemia History of paroxysmal atrial fibrillation, status post ablation, 12/2023 History of typical atrial flutter with previous ablation History of sick sinus syndrome PLAN: Obtain 2D echo to assess cardiac structure and function Resume home cardiac medications Add aspirin 81 mg daily Continue Plavix (patient states he was previously on Brilinta and unable to afford due to copay) Continue IV heparin. Eliquis remains on hold. Will resume post cardiac cath. Patient to undergo cardiac catheterization today with Dr. Whalen Further recommendations pending patient course Nurse practitioner note has been reviewed by physician. Signing provider agrees with the documented findings, assessment, and plan of care documented by LEAF SUCKER OPERATOR as a scribe. Past Medical History Past Medical History: Atrial Fibrillation, Coronary Artery Disease (CAD), Hyperlipidemia, Hypertension, Renal Disease, Syncope Additional Past Medical History / Comment(s): See Dr. Rawls's H&P. kidney stones/surgically removed, symptomatic bradycardia - History of Any Multi-Drug Resistant Organisms: None Reported Past Surgical History: Cardiac Ablation, Heart Catheterization, Heart Catheterization With Stent, Orthopedic Surgery Additional Past Surgical History / Comment(s): Cardioversion, arthroscopic surgery bilateral knees, lithotripsy Past Anesthesia/Blood Transfusion Reactions: Postoperative Nausea & Vomiting (PONV) Additional Past Anesthesia/Blood Transfusion Reaction / Comment(s): difficult to arouse Date of Last Stent Placement:: 2022 Past Psychological History: No Psychological Hx Reported Smoking Status: Never smoker Past Alcohol Use History: Rare Past Drug Use History: None Reported - Past Family History Father Family Medical History: Cancer, Diabetes Mellitus, Hyperlipidemia, Hypertension, Myocardial Infarction ([place]) Additional Family Medical History / Comment(s): prostate. passed Mother Family Medical History: CVA/TIA, Diabetes Mellitus, Hypertension Additional Family Medical History / Comment(s): multiple TIAS. complication of CVA. aspiration Medications and Allergies Home Medications Medication Instructions Recorded Confirmed Type Apixaban [Eliquis] 5 mg PO BID 09/30/23 07/03/24 History Spironolactone 25 mg PO DAILY 11/20/23 07/03/24 History Valsartan 160 mg PO DAILY 11/20/23 07/03/24 History Atorvastatin [Lipitor] 80 mg PO HS 12/03/23 07/03/24 History Clopidogrel [Plavix] 75 mg PO DAILY 07/03/24 07/03/24 History Dapagliflozin Propanediol [Farxiga] 5 mg PO DAILY 07/03/24 07/03/24 History Nitrofurantoin Monohyd/M-Cryst 100 mg PO BID 07/03/24 07/03/24 History [Macrobid] Allergies Allergy/AdvReac Type Severity Reaction Status Date / Time Penicillins Allergy Rash/Hives Verified 07/03/24 08:50 Physical Exam Vitals: Vital Signs Temp Pulse Resp BP Pulse Ox 07/03/24 10:30 55 L 18 141/89 98 07/03/24 10:11 58 L 18 141/89 100 07/03/24 08:07 59 L 18 143/90 98 07/03/24 07:41 97.4 F L 59 L 18 144/96 98 07/03/24 01:00 53 L 14 139/95 98 07/03/24 00:00 56 L 20 158/90 100 07/02/24 23:34 59 L 18 163/98 99 07/02/24 23:00 61 18 168/106 99 07/02/24 22:45 65 22 181/113 99 07/02/24 22:35 97.9 F 64 18 208/121 100 Intake and Output 07/02/24 07/03/24 07/03/24 22:59 06:59 14:59 Other: Weight 81.647 kg Results 07/02/24 22:48 07/02/24 22:48 Cardiac Enzymes 07/02/24 07/02/24 07/03/24 Range/Units 22:48 22:48 02:51 AST 33 (17-59) U/L Troponin I 0.082 H* 0.568 H* (0.000-0.034) ng/mL 07/03/24 Range/Units 07:28 AST (17-59) U/L Troponin I 1.990 H* (0.000-0.034) ng/mL Coagulation 07/02/24 07/03/24 Range/Units 22:48 07:28 PT 11.0 (10.0-12.5) sec APTT 22.8 33.2 H (22.0-30.0) sec CBC 07/02/24 Range/Units 22:48 WBC 11.2 H (3.8-10.6) k/uL RBC 5.42 (4.30-5.90) m/uL Hgb 16.5 (13.0-17.5) gm/dL Hct 49.6 (39.0-53.0) % Plt Count 193 (150-450) k/uL Comprehensive Metabolic Panel 07/02/24 Range/Units 22:48 Sodium 138 (137-145) mmol/L Potassium 3.9 (3.5-5.1) mmol/L Chloride 110 H (98-107) mmol/L Carbon Dioxide 17 L (22-30) mmol/L BUN 25 H (9-20) mg/dL Creatinine 1.10 (0.66-1.25) mg/dL Glucose 176 H (74-99) mg/dL Calcium 10.2 (8.4-10.2) mg/dL AST 33 (17-59) U/L ALT 39 (4-49) U/L Alkaline Phosphatase 92 (38-126) U/L Total Protein 7.4 (6.3-8.2) g/dL Albumin 4.9 (3.5-5.0) g/dL Current Medications Generic Name Dose Route Start Last Admin Trade Name Freq PRN Reason Stop Dose Admin Alprazolam 0.25 mg 07/03/24 09:00 Alprazolam 0.25 Mg Tab PO Q6HR PRN Mild Anxiety Alprazolam 0.5 mg 07/03/24 09:00 Alprazolam 0.5 Mg Tab PO Q6HR PRN Moderate Anxiety Aspirin 81 mg 07/04/24 09:00 Aspirin 81 Mg PO DAILY [facility] Atorvastatin Calcium 80 mg 07/03/24 21:00 Atorvastatin 80 Mg Tab PO HS JOSEPH Clopidogrel Bisulfate 75 mg 07/03/24 09:00 07/03/24 10:13 Clopidogrel 75 Mg Tab PO 75 mg DAILY JOSEPH Administration Dapagliflozin 10 mg 07/03/24 09:00 07/03/24 10:13 Dapagliflozin Propanediol 10 Mg Tablet PO 10 mg DAILY JOSEPH Administration Heparin Sodium (Porcine) 0 unit 07/03/24 01:06 Heparin Sodium 1,000 Un/Ml (10ml Vl) IV PER PROTOCOL PRN Low PTT Protocol Heparin Sodium/Sodium Chloride 250 mls @ 9.798 mls/hr 07/03/24 01:15 07/03/24 01:58 25,000 unit/ Sodium Chloride IV 12 units/kg/hr .Q24H JOSEPH 9.798 mls/hr Administration Protocol 12 UNITS/KG/HR Heparin Sodium (Porcine) 10, 1,001 mls @ 999 mls/hr 07/04/24 07:00 000 unit/ Sodium Chloride IRRIGATION 07/04/24 23:00 ONCE PRN INTRA-OP Heparin Sodium (Porcine) 2,500 250.5 mls @ 250 mls/hr 07/04/24 07:00 unit/ Sodium Chloride IRRIGATION 07/04/24 23:00 ONCE PRN INTRA-OP Sodium Chloride 1,000 ml/ IV 1,000 mls @ 81.647 mls/hr 07/03/24 09:00 07/03/24 10:23 Solution IV 81.647 mls/hr .[id number] JOSEPH Administration 1 ML/KG/HR Nitroglycerin 0.4 mg 07/03/24 01:07 Nitroglycerin Sl Tabs 0.4 Mg Tab SUBLINGUAL Q5M PRN Chest Pain Nitroglycerin 0.4 mg 07/03/24 09:00 Nitroglycerin Sl Tabs 0.4 Mg Tab SUBLINGUAL Q5M PRN Chest Pain Spironolactone 25 mg 07/03/24 09:00 07/03/24 10:13 Spironolactone 25 Mg Tab PO 25 mg DAILY [facility] Administration Valsartan 160 mg 12/28/24 09:00 Valsartan 160 Mg Tab PO DAILY JOSEPH Intake and Output 07/02/24 07/03/24 07/03/24 22:59 06:59 14:59 Other: Weight 81.647 kg 07/02/24 22:48 07/02/24 22:48
[2024-07-03] MEDS: IV FLUID CONTINUATION 900 ML IV ONE (11:53)
[2024-07-03] MEDS: MIDAZOLAM 2 MG/2 ML VIAL IVP ONE (12:06)
[2024-07-03] MEDS: fentaNYL (PF) 50 MCG/ML 2 ML AMP IVP ONE ×3 (12:06→12:08)
[2024-07-03] MEDS: LIDOCAINE 1% INJ 10MG/ML (20 ML MDV) SQ ONE (12:09)
[2024-07-03] MEDS: NITROGLYCERIN 1000MCG/10ML SYRINGE INTRACORON ONE (12:51)
[2024-07-03] MEDS: niCARdipine Syringe (1,000 mcg/10 mL) INTRACORON ONE (13:11)
[2024-07-03] MEDS: HEPARIN SODIUM,PORCINE 10,000 UNIT in SODIUM CHLORIDE 0.9% 1,000 ML IRRIGATION PRN (13:15)
[2024-07-03] MEDS: HEPARIN SODIUM,PORCINE (1 ML) 2,500 UNIT in SODIUM CHLORIDE 0.9% 250 ML IRRIGATION PRN (13:16)
--- NOTE | 2024-07-03 13:38 | P.PRCINT ---
Percutaneous Coronary Int. - Percutaneous Coronary Intervention Percutaneous Coronary Intervention: PROCEDURES PERFORMED: Left coronary angiography, PCI proximal LAD with overlapping 4.5 x 18mm Xience, 4.0 x 8mm Xience MOHIT, post dilated with a 4.5mm NC balloon, IVUS LAD INDICATION: NSTEMI CONSENT:The risks, benefits and alternative therapies for the above-mentioned procedure and for both sedation/analgesia as well as necessary blood product administration, if indicated, as they pertain to this patient were discussed. The patient has indicated understanding and acceptance of the risks and procedures discussed. PROCEDURE: After the risks, benefits and alternatives of the above mentioned procedure explained in detail with the patient, informed consent was obtained. Patient was taken to the catheterization lab and prepped and draped in usual fashion. A 6-Z[place]an sheath had been placed in the right radial artery. The decision was made to perform PCI of LAD. Heparin was given. A 6-[place]an CLS 3.5 guide was used to engage the left main. A 0.014 BMW wire was advanced to the distal LAD/diagonal and additional wire distal circumflex. Balloon angioplasty was performed with a 4.0 balloon with some watermelonning. Intravascular ultrasound showed reference vessel 4.5 mm with diffuse disease with mild calcification. Next a 4.5 x 15 mm noncompliant balloon was used to predilate. A 4.5 x 18 mm drug-eluting stent was placed in the proximal LAD however there was some small gap and therefore an additional 4.0 x 8 mm drug- eluting stent was placed in between the proximal and mid LAD stent. The stents were postdilated with a 4.5 mm noncompliant balloon. Repeat intravascular ultrasound showed well-expanded stent with no dissection. Final angiograms were performed. Pre-intervention there was 99% stenosis and REY 2 flow. Postintervention there was less than 10% stenosis and REY-3 flow. The right radial sheath was removed and a TR band was placed with hemostasis achieved. The patient tolerated the procedure well. Patient was transported back to the post catheterization holding area in stable condition. Conscious Sedation: Patient was monitored under the direct supervision of myself for conscious sedation using Versed and fentanyl for a total duration of 35 minutes HEMODYNAMICS: Ao: 142/89 SELECTIVE CORONARY ARTERIOGRAPHY: LEFT MAIN: The left main is a large caliber vessel which bifurcates into the LAD and circumflex. There is no significant stenosis. LEFT ANTERIOR DESCENDING CORONARY ARTERY: LAD is a large caliber vessel which appears to come short of the apex. There is a 99% proximal LAD stenosis. The prior stents appeared to go into a diagonal branch however take off of the LAD to the apex is not identified. On the RCA imaging large PDA which may cover the apex versus collaterals. LEFT CIRCUMFLEX CORONARY ARTERY: Left circumflex is a large caliber vessel with mild 20-30% stenosis. RIGHT CORONARY ARTERY: The right coronary artery was not imaged, see separate report FINAL IMPRESSION: 1. CAD as described above with 99% proximal LAD stenosis and otherwise mild 20- 30% circumflex stenosis 2. S/p PCI proximal LAD with overlapping 4.5 x 18mm Xience, 4.0 x 8mm Xience MOHIT, post dilated with a 4.5mm NC balloon PLAN: 1. Aggressive risk factor modification per most recent ACC/AHA guidelines. 2. Continue Eliquis and Plavix for 12 months. 3. Goal LDL < 70
[2024-07-03 13:40] LABS: Glucose,Whole Blood 124 mg/dL (70-110)
[2024-07-03] MEDS: VALSARTAN 160 MG TAB PO SCH (15:00)
[2024-07-03] MEDS: ATORVASTATIN 80 MG TAB PO SCH (20:17)
[2024-07-03] MEDS: APIXABAN 5 MG TAB PO SCH (20:55)
[2024-07-04 06:29] LABS: Basophils # (A) 0.1 k/uL (0-0.2); Basophils % (A) 1 %; Eosinophils # (A) 0.3 k/uL (0-0.7); Eosinophils % (A) 3 %; HCT 47.5 % (39.0-53.0); HGB 15.7 gm/dL (13.0-17.5); Lymphocytes # (A) 1.8 k/uL (1.0-4.8); Lymphocytes % (A) 17 %; MCH 29.9 pg (25.0-35.0); MCHC 33.1 g/dL (31.0-37.0); MCV 90.4 fL (80.0-100.0); Mean Platelet Volume 9.1; Monocytes # (A) 0.7 k/uL (0-1.0); Monocytes % (A) 7 %; Neutrophils # (A) 7.4 k/uL (1.3-7.7); Neutrophils % (A) 71 %; Platelet Count 188 k/uL (150-450); RBC 5.25 m/uL (4.30-5.90); RDW 12.5 % (11.5-15.5); WBC 10.4 k/uL (3.8-10.6)
[2024-07-04 06:45] LABS: Prothrombin Time 11.2 sec (10.0-12.5)
[2024-07-04 06:49] LABS: African American GFR (CKD) 85 (>60 ml/min/1.73 sqM); Anion Gap 9 mmol/L; Blood Urea Nitrogen 18 mg/dL (9-20); Carbon Dioxide 21 mmol/L (22-30); Chloride 108 mmol/L (98-107); Glucose 119 mg/dL (74-99); Non-African American GFR(CKD) 73 (>60 ml/min/1.73 sqM); Potassium 4.5 mmol/L (3.5-5.1); Sodium 138 mmol/L (137-145)
[2024-07-04] MEDS: ASPIRIN 81 MG PO SCH (08:30)
[2024-07-04] MEDS ORDERED: ASPIRIN 325 MG TAB PO SCH (09:00)
[2024-07-04 10:06] LABS: Chol/HDL Ratio 3.33 Ratio; LDL Cholesterol,Calculated 60.4 mg/dL (0.0-131.0)
--- NOTE | 2024-07-04 12:56 | CA ---
Transthoracic Echo Report Name: Edward Portillo Age: 74 Gender: M : 1950 Exam Date: 07/04/2024 09:34 Exam Location: [facility] Ht (in): 72 Wt (lb): 180 Ordering Physician: Zuleima Ortiz Attending/Referring Phys: Jacky Rawls MD ([id number]) Hearing Aid Consultant Ramona Jarvis RDCS Procedure CPT: Indications: LV function, NSTEMI Cardiac Hx: Technical Quality: Technically difficult study Contrast 1: Total Dose (mL): Contrast 2: Total Dose (mL): MEASUREMENTS (Male / Female) Normal Values 2D ECHO LV Diastolic Diameter PLAX 5.0 cm 4.2 - 5.9 / 3.9 - 5.3 cm LV Systolic Diameter PLAX 3.6 cm IVS Diastolic Thickness 1.2 cm 0.6 - 1.0 / 0.6 - 0.9 cm LVPW Diastolic Thickness 1.4 cm 0.6 - 1.0 / 0.6 - 0.9 cm LV Relative Wall Thickness 0.5 RV Internal Dim ED PLAX 3.5 cm LVOT Diameter 2.8 cm LA Systolic Diameter LX 4.4 cm 3.0 - 4.0 / 2.7 - 3.8 cm LV Diastolic Volume MOD BP 133.3 cm??? 67 - 155 / 56 - 104 cm??? LV Systolic Volume MOD BP 59.1 cm??? 22 - 58 / 19 - 49 cm??? LV Ejection Fraction MOD BP 55.7 % >= 55 % LV Cardiac Index MOD BP 2181.2 cm???/min???m??? LV Diastolic Volume MOD 4C 123.8 cm??? LV Systolic Volume MOD 4C 56.9 cm??? LV Ejection Fraction MOD 4C 54.1 % LV Cardiac Index MOD 4C 1965.9 cm???/min???m??? LV Diastolic Length 4C 8.0 cm LV Systolic Length 4C 7.3 cm LV Diastolic Volume MOD 2C 142.6 cm??? LV Systolic Volume MOD 2C 61.2 cm??? LV Ejection Fraction MOD 2C 57.1 % LV Cardiac Index MOD 2C 2394.1 cm???/min???m??? LV Diastolic Length 2C 7.9 cm LV Systolic Length 2C 7.8 cm LA Volume 71.6 cm??? 18 - 58 / 22 - 52 cm??? LA Volume Index 35.1 cm???/m??? 16 - 28 cm???/m??? M-MODE Aortic Root Diameter MM 4.0 cm DOPPLER AV Peak Velocity 113.7 cm/s AV Peak Gradient 5.2 mmHg MV Area PHT 5.1 cm??? Mitral E Point Velocity 96.4 cm/s Mitral A Point Velocity 24.8 cm/s Mitral E to A Ratio 3.9 MV Deceleration Time 147.8 ms TR Peak Velocity 259.2 cm/s TR Peak Gradient 26.9 mmHg Right Ventricular Systolic Press 31.3 mmHg FINDINGS Left Ventricle Left ventricular ejection fraction is estimated at 40-45 %. Mildly increased septal wall thickness. Mildly increased left ventricular systolic volume. Mildly reduced global left ventricular systolic function. Right Ventricle Mild right ventricular dilatation. Right ventricular systolic pressure within normal limits. Right Atrium Normal right atrial size. No right atrial thrombus or mass seen. Left Atrium Mildly increased left atrial diameter. Moderately increased left atrial volume. Mildly increased left atrial area. Mitral Valve Structurally normal mitral valve. No mitral stenosis, regurgitation or prolapse. Aortic Valve Trileaflet aortic valve. Aortic valve sclerosis. No aortic valve stenosis or regurgitation. Tricuspid Valve Structurally normal tricuspid valve. Mild tricuspid regurgitation. Pulmonic Valve Pulmonic valve not well visualized. No pulmonic regurgitation. Pericardium No pericardial effusion. Aorta Mild aortic dilatation at the level of the sinuses of valsalva 40 mm CONCLUSIONS Mild to moderate LV systolic dysfunction Mildly dilated aortic root Apical hypokinesis Previewed by: Dr. Napoleon Whalen MD (Electronically Signed) Final Date: 04 July 2024 12:55
--- NOTE | 2024-07-04 14:06 | P.PN ---
Subjective Progress Note Date: 07/04/24 patient is a 74-year-old gentleman with past medical history significant for coronary disease who presented the ER for chest pain. Patient stated he was all right yesterday when started having chest pain that was central in location, radiating to the back not associated with exertion, no aggravating or relieving factor associated with chest pain. Patient stated that initially chest pain was intermittent but later on it became constant and has been going of the last 3 hours. Patient was complaining of nausea at the time. Patient also stated he was short of breath on exertion, had a hard time going up a flight of stairs. Denies any palpitation. There is no complaint of orthopnea or PND. Because of the chest pain, the patient came to the ER Initial lab work done in the ER showed was 11.2, hemoglobin 16.5, platelet count 193, sodium 138, potassium 3.9, BUN 25, creatinine 1.10, troponin 0.082 lipase 69 CTA chest abdomen done showed thoracic aorta normal in caliber with a mid ascending aorta measuring 3.7 x 3.7 cm the aortic arch and descending aorta are normal in caliber, no dissection. Global cardiomegaly, no focal airspace consolidation, there is a 5.9 mm noncalcified pulm nodule in the posterior medial left lower lobe. Abdominal aorta is normal caliber without dissection or aneurysm. No acute periaortic abnormality identified. EKG done in the ER showed heart rate of 63, no ST segment elevation or depression seen, no T-wave inversions seen. Patient admitted to internal medicine service 07/04. Patient seen and examined. Patient had cardiac cath showing 99% proximal LAD stenosis and otherwise mild 20-30% circumflex stenosis S/p PCI proximal LAD with overlapping 4.5 x 18mm Xience, 4.0 x 8mm Xience MOHIT, currently doing much better. Denies any chest pain. 2D echo done showed LVEF of 40 to 45%, mildly increased septal wall thickness. Mildly increased left ventricular systolic volume. REVIEW OF SYSTEMS: CONSTITUTIONAL: No fever, no malaise,. CARDIOVASCULAR: No chest pain, no palpitations, no syncope. PULMONARY: No shortness of breath, no cough, GASTROINTESTINAL: No diarrhea, no nausea, no vomiting, no abdominal pain. NEUROLOGICAL: No headaches, no weakness, PHYSICAL EXAMINATION: GENERAL: The patient is alert and oriented x3, not in any acute distress. Well developed, well nourished. HEENT: Pupils are round and equally reacting to light. EOMI. No scleral icterus. No conjunctival pallor. Normocephalic, atraumatic. No pharyngeal erythema. No thyromegaly. CARDIOVASCULAR: S1 and S2 present. No murmurs, rubs, or gallops. PULMONARY: Chest is clear to auscultation, no wheezing or crackles. ABDOMEN: Soft, nontender, nondistended, normoactive bowel sounds. No palpable organomegaly. MUSCULOSKELETAL: No joint swelling or deformity. EXTREMITIES: No cyanosis, clubbing, or pedal edema. NEUROLOGICAL: Gross neurological examination did not reveal any focal deficits. SKIN: No rashes. Assessment and plan NSTEMI Hypertension Hyperlipidemia Cardiomyopathy History of coronary artery disease History of paroxysmal atrial fibrillation, status post ablation, 12/2023 History of typical atrial flutter with previous ablation History of sick sinus syndrome Monitor vital signs Monitor CBC Monitor CMP Continue telemetry monitoring 2D echo done showed LVEF of 40 to 45%, mildly increased septal wall thickness. Mildly increased left ventricular systolic volume. cardiac cath showing 99% proximal LAD stenosis and otherwise mild 20-30% circumflex stenosis S/p PCI proximal LAD with overlapping 4.5 x 18mm Xience, 4.0 x 8mm Xience MOHIT, Continue aspirin, Lipitor, Plavix Resume Eliquis Continue Aldactone and valsartan Cardiology following Labs and medication were reviewed.. Continue same treatment. Continue with symptomatic treatment. Resume home medication. Monitor labs and vitals. DVT and GI prophylaxis. Further recommendations as per clinical course of the patient Dictation was produced using [employer] dictation software. please excuse any grammatical, word or spelling errors. Objective - Vital Signs Vital signs: Vital Signs Temp 98.0 F 07/04/24 12:00 Pulse 56 L 07/04/24 12:00 Resp 20 07/04/24 12:00 BP 130/85 07/04/24 12:00 Pulse Ox 98 07/04/24 12:00 FiO2 Intake & Output 07/03/24 07/04/24 07/04/24 18:59 06:59 18:59 Intake Total 582 Balance 582 Weight 81.647 kg Intake: IV 300 Intake, IV Titration 82 Amount Sodium Chloride 0.9% 1, 82 000 ml In Empty Bag 1 bag @ 1 ML/KG/HR 81.647 mls/ hr IV .[id number] JOSEPH Rx#: [id number] Oral 200 Other: # Voids 1 2 - Labs CBC & Chem 7: 07/04/24 06:07 07/04/24 06:07 Labs: Abnormal Lab Results - Last 24 Hours (Table) 07/03/24 07/04/24 Range/Units 13:59 06:07 Chloride 108 H (98-107) mmol/L Carbon Dioxide 21 L (22-30) mmol/L Glucose 119 H (74-99) mg/dL Troponin I 4.330 H* (0.000-0.034) ng/mL Triglycerides 160.00 H (0.00-149.00) mg/dL HDL Cholesterol 39.60 L (40.00-60.00) mg/dL
[2024-07-05 06:09] LABS: Basophils # (A) 0.1 k/uL (0-0.2); Basophils % (A) 1 %; Eosinophils # (A) 0.4 k/uL (0-0.7); Eosinophils % (A) 4 %; HGB 16.5 gm/dL (13.0-17.5); Lymphocytes # (A) 2.3 k/uL (1.0-4.8); Lymphocytes % (A) 23 %; MCH 29.9 pg (25.0-35.0); MCHC 32.9 g/dL (31.0-37.0); MCV 90.9 fL (80.0-100.0); Mean Platelet Volume 9.2; Monocytes # (A) 0.7 k/uL (0-1.0); Monocytes % (A) 7 %; Neutrophils # (A) 6.7 k/uL (1.3-7.7); Neutrophils % (A) 65 %; Platelet Count 205 k/uL (150-450); RDW 12.5 % (11.5-15.5); WBC 10.3 k/uL (3.8-10.6)
[2024-07-05 06:22] LABS: ALT 33 U/L (4-49); AST 41 U/L (17-59); African American GFR (CKD) 77 (>60 ml/min/1.73 sqM); Albumin 4.2 g/dL (3.5-5.0); Alkaline Phosphatase 87 U/L (38-126); Anion Gap 8 mmol/L; Blood Urea Nitrogen 21 mg/dL (9-20); Calcium 9.5 mg/dL (8.4-10.2); Carbon Dioxide 23 mmol/L (22-30); Chloride 107 mmol/L (98-107); Glucose 117 mg/dL (74-99); Non-African American GFR(CKD) 67 (>60 ml/min/1.73 sqM); Potassium 4.5 mmol/L (3.5-5.1); Sodium 138 mmol/L (137-145); Total Bilirubin 1.2 mg/dL (0.2-1.3); Total Protein 6.3 g/dL (6.3-8.2)
[2024-07-05 06:30] VITALS: PULSE 67; RESP 18; TEMP 98
--- NOTE | 2024-07-05 07:43 | P.PN ---
Subjective Progress Note Date: 07/05/24 PROGRESS NOTE The patient is a 74-year-old male with known history of paroxysmal atrial fibrillation status post ablation, history of CAD, hypertension, hyperlipidemia who presented with symptoms of chest comfort and was found to have troponin elevation. He underwent coronary angiography and subsequent stenting of the proximal LAD using a 4.5 x 18 and 4.0 x 8 mm stent postdilated with a 4.5 NC balloon. His echocardiogram showed an ejection fraction of 40 to 45% with apical hypokinesis. He is feeling well this morning, in sinus mechanism. Denies any chest discomfort, dizziness or palpitations. He has ambulated without any symptoms. Medications: Aspirin, Eliquis 5 mg twice a day, atorvastatin 80 mg daily, clopidogrel 75 mg daily, Farxiga 10 mg daily, spironolactone 25 mg daily, valsartan 160 mg daily. PHYSICAL EXAMINATION: Blood pressure 119/90 heart rate 64 LUNGS: Clear to auscultation HEART: Regular rate and rhythm, S1, S2. No S3. Systolic ejection murmur ABDOMEN: Soft, nontender, no organomegaly EXTREMETIES: No edema, right radial pulse intact LAB: Hemoglobin 16.5, BUN 21, creatinine 1.09 IMPRESSION: 1. Status post non-STEMI and stenting of the LAD 2. Hypertension 3. Hyperlipidemia 4. Paroxysmal atrial fibrillation status post ablation, maintaining sinus mechanism 5. Ischemic cardiomyopathy PLAN: 1. Continue present therapy 2. Stop aspirin 1 week and continue clopidogrel and Eliquis for 1 year 3. Follow heart rate as an outpatient and if stable add beta-joe 4. If stable probable discharge home today Objective - Vital Signs Vital signs: Vital Signs Temp 98.0 F 07/05/24 04:00 Pulse 67 07/05/24 04:00 Resp 18 07/05/24 04:00 BP 119/91 07/05/24 04:00 Pulse Ox 97 07/05/24 04:00 FiO2 Intake & Output 07/04/24 07/05/24 07/05/24 18:59 06:59 18:59 Intake Total 200 Balance 200 Weight 100.7 kg Intake: Oral 200 Other: Voiding Method Toilet # Voids 2 3 - Labs CBC & Chem 7: 07/05/24 05:17 07/05/24 05:17 Labs: Abnormal Lab Results - Last 24 Hours (Table) 07/04/24 07/05/24 Range/Units 06:07 05:17 BUN 21 H (9-20) mg/dL Glucose 117 H (74-99) mg/dL Triglycerides 160.00 H (0.00-149.00) mg/dL HDL Cholesterol 39.60 L (40.00-60.00) mg/dL
[2024-07-05 08:16] VITALS: BP 128/88
--- NOTE | 2024-07-05 09:07 | CC ---
CARDIAC CATHETERIZATION REPORT INDICATIONS: Acute non ST segment-elevation LA. PROCEDURE NOTE: After obtaining informed consent, left heart catheterization and coronary angiogram were performed via the right radial artery using standard Kina catheters. The patient tolerated the procedure without any obvious immediate complications. The patient received moderate conscious sedation. Total sedation time was 14 minutes. Right radial artery access was obtained using Seldinger technique, 6-Iraqi sheath was placed. Catheters and wires were floated into the ascending aorta under fluoroscopic guidance. The patient received verapamil and heparin per protocol. FINDINGS: 1. Hemodynamics: Left ventricular end-diastolic pressure is 14 mm. There is no significant gradient across the aortic valve. 2. Left ventriculogram: Left ventriculogram is not performed. 3. Angiographic data: a.Right coronary artery is a large dominant vessel that shows mild nonobstructive disease. Left main coronary artery is free of stenosis. Divides into left anterior descending coronary artery and circumflex coronary artery. The proximal LAD shows a 95% stenosis. There is a long segment of stenting that appears patent and there is mild nonobstructive plaque distal to the stent. CONCLUSIONS: 95% focal stenosis in the proximal LAD proximal to the stent. PLAN: I am going to have Dr. Antoine's, the on-call data analysis assistant, to review the angiographic data and advise on angioplasty. MMODL / IJN: [id number] /
--- NOTE | 2024-07-05 09:11 | PN ---
PROGRESS NOTE SUBJECTIVE: Edward is a 74-year-old gentleman who is admitted to hospital with non ST-segment elevation NJ and I performed a cardiac catheterization on him that revealed severe obstructive disease in the LAD just proximal to the stent. He underwent angioplasty with stent placement. He had mild troponin elevation suggestive of [id number] elevation NJ. This morning, he is doing well and is free of symptoms. PHYSICAL EXAMINATION: GENERAL: Comfortable at rest. VITAL SIGNS: Stable. CHEST: Exam reveals good air entry bilaterally. HEART: Reveals first and second heart sounds. No gallop. No murmur. ABDOMEN: Soft, nontender. EXTREMITIES: Examination of the extremities did not reveal any edema. Peripheral pulses are felt. LABORATORY DATA: Labs shows hemoglobin of 15.7, platelet count is 188. Troponin is elevated at 4.3. ASSESSMENT AND PLAN: Acute [id number]-GF-[id number] elevation myocardial infarction. PLAN: The patient will be treated with current medications including aspirin, Eliquis, Plavix, Lipitor, valsartan, and Aldactone. We will stop the aspirin over the next few weeks and discontinue the Plavix and Eliquis. He will be followed up with Dr. Rawls in the office. Right radial artery access site appears normal. MMODL / IJN: [id number] /
--- NOTE | 2024-07-05 13:25 | P.DS ---
Providers Date of admission: 07/03/24 01:07 Expected date of discharge: 07/05/24 Attending physician: Juvenal Cifuentes Consults: 07/03/24 01:07 Consult Physician Urgent Consulting Provider: Josiah Jhaveri Consult Reason/Comments: chest pain/ACS Do you want consulting provider notified?: Yes Primary care physician: Ehsan Michelle MD Hospital Course: Discharge diagnoses; NSTEMI Hypertension Hyperlipidemia Cardiomyopathy History of coronary artery disease History of paroxysmal atrial fibrillation, status post ablation, 12/2023 History of typical atrial flutter with previous ablation History of sick sinus syndrome Hospital course; patient is a 74-year-old gentleman with past medical history significant for coronary disease who presented the ER for chest pain. Patient stated he was all right yesterday when started having chest pain that was central in location, radiating to the back not associated with exertion, no aggravating or relieving factor associated with chest pain. Patient stated that initially chest pain was intermittent but later on it became constant and has been going of the last 3 hours. Patient was complaining of nausea at the time. Patient also stated he was short of breath on exertion, had a hard time going up a flight of stairs. Denies any palpitation. There is no complaint of orthopnea or PND. Because of the chest pain, the patient came to the ER Initial lab work done in the ER showed was 11.2, hemoglobin 16.5, platelet count 193, sodium 138, potassium 3.9, BUN 25, creatinine 1.10, troponin 0.082 lipase 69 CTA chest abdomen done showed thoracic aorta normal in caliber with a mid ascending aorta measuring 3.7 x 3.7 cm the aortic arch and descending aorta are normal in caliber, no dissection. Global cardiomegaly, no focal airspace cons olidation, there is a 5.9 mm noncalcified pulm nodule in the posterior medial left lower lobe. Abdominal aorta is normal caliber without dissection or aneurysm. No acute periaortic abnormality identified. EKG done in the ER showed heart rate of 63, no ST segment elevation or depression seen, no T-wave inversions seen. Patient admitted to internal medicine service 07/04. Patient seen and examined. Patient had cardiac cath showing 99% proximal LAD stenosis and otherwise mild 20-30% circumflex stenosis S/p PCI proximal LAD with overlapping 4.5 x 18mm Xience, 4.0 x 8mm Xience MOHIT, currently doing much better. Denies any chest pain. 2D echo done showed LVEF of 40 to 45%, mildly increased septal wall thickness. Mildly increased left ventricular systolic volume. 07/05. Patient seen and examined. Cardiology recommended discharging on aspirin, Plavix, Eliquis, aspirin to be stopped after 1 week and patient to be continued on Plavix and Eliquis PHYSICAL EXAMINATION: GENERAL: The patient is alert and oriented x3, not in any acute distress. Well developed, well nourished. HEENT: Pupils are round and equally reacting to light. EOMI. No scleral icterus. No conjunctival pallor. Normocephalic, atraumatic. No pharyngeal erythema. No thyromegaly. CARDIOVASCULAR: S1 and S2 present. No murmurs, rubs, or gallops. PULMONARY: Chest is clear to auscultation, no wheezing or crackles. ABDOMEN: Soft, nontender, nondistended, normoactive bowel sounds. No palpable organomegaly. MUSCULOSKELETAL: No joint swelling or deformity. EXTREMITIES: No cyanosis, clubbing, or pedal edema. NEUROLOGICAL: Gross neurological examination did not reveal any focal deficits. SKIN: No rashes. Dictation was produced using Pins dictation software. please excuse any grammatical, word or spelling errors. Patient Condition at Discharge: Good Plan - Discharge Summary Discharge Rx Participant: No New Discharge Prescriptions: New Dapagliflozin Propanediol [Farxiga] 10 mg PO DAILY 30 Days #30 tab Aspirin 81 mg PO DAILY 7 Days #7 tab Nitroglycerin Sl Tabs [Nitrostat] 0.4 mg SUBLINGUAL Q5M PRN #30 tab PRN Reason: Chest Pain Continue Apixaban [Eliquis] 5 mg PO BID Spironolactone 25 mg PO DAILY Atorvastatin [Lipitor] 80 mg PO HS Valsartan 160 mg PO DAILY Clopidogrel [Plavix] 75 mg PO DAILY Nitrofurantoin Monohyd/M-Cryst [Macrobid] 100 mg PO BID Discontinued Dapagliflozin Propanediol [Farxiga] 5 mg PO DAILY Discharge Medication List Apixaban [Eliquis] 5 mg PO BID 09/30/23 [History] Spironolactone 25 mg PO DAILY 11/20/23 [History] Valsartan 160 mg PO DAILY 11/20/23 [History] Atorvastatin [Lipitor] 80 mg PO HS 12/03/23 [History] Clopidogrel [Plavix] 75 mg PO DAILY 07/03/24 [History] Nitrofurantoin Monohyd/M-Cryst [Macrobid] 100 mg PO BID 07/03/24 [History] Aspirin 81 mg PO DAILY 7 Days #7 tab 07/05/24 [Rx] Dapagliflozin Propanediol [Farxiga] 10 mg PO DAILY 30 Days #30 tab 07/05/24 [Rx] Nitroglycerin Sl Tabs [Nitrostat] 0.4 mg SUBLINGUAL Q5M PRN #30 tab 07/05/24 [Rx] Follow up Appointment(s)/Referral(s): Ehsan Michelle MD [Primary Care Provider] - 1-2 days Oniel Lowe MD [STAFF PHYSICIAN] - 1 Week Discharge Disposition: HOME SELF-CARE
== END 2024-07-05 12:32 | disposition home or self-care (01) | DRG 321 ==
LOC: EC 22:34 → 3SCARD 07-03 01:07 → 2SICU 07-03 13:51
PROVIDERS: ADMIT Hospitalist; ATTEND Hospitalist
PROC: B2111ZZ Fluoroscopy of Multiple Coronary Arteries using Low Osmolar Contrast (ICD-10-PCS; 2024-07-03)
PROC: B240ZZ3 Ultrasonography of Single Coronary Artery, Intravascular (ICD-10-PCS; 2024-07-03)
PROC: 027035Z Dilation of Coronary Artery, One Artery with Two Drug-eluting Intraluminal Devices, Percutaneous Approach (ICD-10-PCS; principal; 2024-07-03 10:51)
PROC: B2111ZZ Fluoroscopy of Multiple Coronary Arteries using Low Osmolar Contrast (ICD-10-PCS; 2024-07-03 10:51)
PROC: 4A023N7 Measurement of Cardiac Sampling and Pressure, Left Heart, Percutaneous Approach (ICD-10-PCS; 2024-07-03 10:51)
DX: T82.855A Stenosis of coronary artery stent, initial encounter (principal); I21.3 ST elevation (STEMI) myocardial infarction of unspecified site; I49.5 Sick sinus syndrome; I48.0 Paroxysmal atrial fibrillation; I10 Essential (primary) hypertension; I25.5 Ischemic cardiomyopathy; R91.1 Solitary pulmonary nodule; E78.5 Hyperlipidemia, unspecified; I25.10 Atherosclerotic heart disease of native coronary artery without angina pectoris; Y71.1 Therapeutic (nonsurgical) and rehabilitative cardiovascular devices associated with adverse incidents; Z79.84 Long term (current) use of oral hypoglycemic drugs; Z79.82 Long term (current) use of aspirin; Z79.02 Long term (current) use of antithrombotics/antiplatelets; Z79.01 Long term (current) use of anticoagulants; Z79.899 Other long term (current) drug therapy; I25.2 Old myocardial infarction; Z82.49 Family history of ischemic heart disease and other diseases of the circulatory system
CPT/HCPCS: 36415; 71275; 74175; 80048; 80053; 80061; 82150; 83690; 83735; 84484; 85025; 85610; 85730; 92978; 93005; 93306; 93458; 96361; 96365; 96366; 96375; 99291

== ENCOUNTER 2024-07-18 10:31 | Emergency (ER) | payer MEDICARE ==
[2024-07-18] MEDS: SODIUM CHLORIDE 0.9% 1,000 ML IV STA (11:48)
[2024-07-18 11:51] LABS: Basophils # (A) 0.1 k/uL (0-0.2); Basophils % (A) 1 %; Eosinophils # (A) 0.1 k/uL (0-0.7); Eosinophils % (A) 1 %; HCT 49.2 % (39.0-53.0); HGB 16.8 gm/dL (13.0-17.5); Lymphocytes # (A) 1.3 k/uL (1.0-4.8); Lymphocytes % (A) 9 %; MCH 30.9 pg (25.0-35.0); MCHC 34.3 g/dL (31.0-37.0); MCV 90.2 fL (80.0-100.0); Mean Platelet Volume 9.4; Monocytes # (A) 0.6 k/uL (0-1.0); Monocytes % (A) 4 %; Neutrophils # (A) 12.9 k/uL (1.3-7.7); Neutrophils % (A) 85 %; Platelet Count 243 k/uL (150-450); RBC 5.45 m/uL (4.30-5.90); RDW 12.7 % (11.5-15.5); WBC 15.2 k/uL (3.8-10.6)
[2024-07-18 11:59] LABS: Appearance,Urine Cloudy (Clear); Bacteria,Urine Rare /hpf; Bilirubin,Urine Negative (Negative); Blood,Urine Large (Negative); Budding Yeast,Urine Few /hpf; Color,Urine Light Red; Glucose,Urine (UA) 4+ (Negative); Ketones,Urine 1+ (Negative); Leukocyte Esterase,Urine Negative (Negative); Mucus,Urine Occasional /hpf; Nitrite,Urine Negative (Negative); Protein,Urine Trace (Negative); RBC,Urine >182 /hpf (0-5); Specific Gravity,Urine 1.028 (1.001-1.035); Urobilinogen,Urine <2.0 mg/dL (<2.0); WBC,Urine 46 /hpf (0-5)
[2024-07-18 12:00] LABS: ALT 48 U/L (4-49); AST 48 U/L (17-59); African American GFR (CKD) 50 (>60 ml/min/1.73 sqM); Alkaline Phosphatase 112 U/L (38-126); Anion Gap 15 mmol/L; Blood Urea Nitrogen 28 mg/dL (9-20); Calcium 9.8 mg/dL (8.4-10.2); Carbon Dioxide 18 mmol/L (22-30); Chloride 107 mmol/L (98-107); Glucose 171 mg/dL (74-99); Lipase 102 U/L (23-300); Non-African American GFR(CKD) 43 (>60 ml/min/1.73 sqM); Potassium 4.4 mmol/L (3.5-5.1); Sodium 140 mmol/L (137-145); Total Bilirubin 1.3 mg/dL (0.2-1.3); Total Protein 7.3 g/dL (6.3-8.2)
--- NOTE | 2024-07-18 12:26 | ED ---
Abdominal Pain HPI - General Chief Complaint: Abdominal Pain Stated Complaint: kidney stone Time Seen by Provider: 07/18/24 10:50 Source: patient, family, RN notes reviewed Mode of arrival: wheelchair Limitations: no limitations - History of Present Illness Initial Comments: 74-year-old male presents emergency department complaint of severe left flank pa in. Patient states he had a known kidney stone he was scheduled for lithotripsy but he had a recent GA with stent placement. Patient states pain started overnight this morning. Patient states persistent pain there is some waxing waning to it. Patient states he has associated nausea without vomiting noted area no dysuria. Patient denies any chest pain shortness of breath. - Related Data Home Medications Medication Instructions Recorded Confirmed Apixaban [Eliquis] 5 mg PO BID 09/30/23 07/03/24 Spironolactone 25 mg PO DAILY 11/20/23 07/03/24 Valsartan 160 mg PO DAILY 11/20/23 07/03/24 Atorvastatin [Lipitor] 80 mg PO HS 12/03/23 07/03/24 Clopidogrel [Plavix] 75 mg PO DAILY 07/03/24 07/03/24 Nitrofurantoin Monohyd/M-Cryst 100 mg PO BID 07/03/24 07/03/24 [Macrobid] Previous Rx's Medication Instructions Recorded Aspirin 81 mg PO DAILY 7 Days #7 tab 07/05/24 Dapagliflozin Propanediol [Farxiga] 10 mg PO DAILY 30 Days #30 tab 07/05/24 Nitroglycerin Sl Tabs [Nitrostat] 0.4 mg SUBLINGUAL Q5M PRN #30 tab 07/05/24 Cephalexin [Keflex] 500 mg PO Q8HR #21 cap 07/19/24 Allergies Allergy/AdvReac Type Severity Reaction Status Date / Time Penicillins Allergy Rash/Hives Verified 07/18/24 11:02 Review of Systems ROS Statement: Those systems with pertinent positive or pertinent negative responses have been documented in the HPI. ROS Other: All systems not noted in ROS Statement are negative. Past Medical History Past Medical History: Atrial Fibrillation, Coronary Artery Disease (CAD), Hyperlipidemia, Hypertension, Myocardial Infarction (GA), Renal Disease, Syncope Additional Past Medical History / Comment(s): See Dr. Rawls's H&P. kidney stones/surgically removed, symptomatic bradycardia - History of Any Multi-Drug Resistant Organisms: None Reported Past Surgical History: Cardiac Ablation, Heart Catheterization, Heart Catheterization With Stent, Orthopedic Surgery Additional Past Surgical History / Comment(s): Cardioversion, arthroscopic surge ry bilateral knees, lithotripsy Past Anesthesia/Blood Transfusion Reactions: Postoperative Nausea & Vomiting (PONV) Additional Past Anesthesia/Blood Transfusion Reaction / Comment(s): difficult to arouse Date of Last Stent Placement:: 2022 Past Psychological History: No Psychological Hx Reported Smoking Status: Never smoker Past Alcohol Use History: Rare Past Drug Use History: None Reported - Past Family History Father Family Medical History: Cancer, Diabetes Mellitus, Hyperlipidemia, Hypertension, Myocardial Infarction (GA) Additional Family Medical History / Comment(s): prostate. passed Mother Family Medical History: CVA/TIA, Diabetes Mellitus, Hypertension Additional Family Medical History / Comment(s): multiple TIAS. complication of CVA. aspiration General Exam Limitations: no limitations General appearance: alert, in no apparent distress Head exam: Present: atraumatic, normocephalic, normal inspection Eye exam: Present: normal appearance, PERRL, EOMI. Absent: scleral icterus, conjunctival injection, periorbital swelling ENT exam: Present: normal exam, normal oropharynx, mucous membranes moist Neck exam: Present: normal inspection. Absent: tenderness, meningismus, lymphadenopathy Respiratory exam: Present: normal lung sounds bilaterally. Absent: respiratory distress, wheezes, rales, rhonchi, stridor Cardiovascular Exam: Present: normal rhythm, tachycardia, normal heart sounds. Absent: systolic murmur, diastolic murmur, rubs, gallop, clicks GI/Abdominal exam: Present: soft, tenderness, normal bowel sounds. Absent: distended, guarding, rebound, rigid Back exam: Absent: CVA tenderness (R), CVA tenderness (L) Neurological exam: Present: alert, oriented X3 Skin exam: Present: warm, dry, intact, normal color. Absent: rash Course Vital Signs 07/18/24 07/18/24 07/18/24 11:02 11:45 12:58 Temperature 98.3 F 98.2 F Pulse Rate 43 L 56 L 57 L Respiratory 24 17 16 Rate Blood Pressure 140/83 124/86 117/70 O2 Sat by Pulse 97 100 98 Oximetry Medical Decision Making - Medical Decision Making Was pt. sent in by a medical professional or institution (MYRON Knight, SUPPORT CLERK, urgent care, hospital, or shelter...) When possible be specific @ -No Did you speak to anyone other than the patient for history (EMS, parent, family, police, friend...)? What history was obtained from this source @ -No Did you review nursing and triage notes (agree or disagree)? Why? @ -I reviewed and agree with nursing and triage notes Were old charts reviewed (outside hosp., previous admission, EMS record, old EKG, old radiological studies, urgent care reports/EKG's, shelter records)? Report findings @ -No old charts were reviewed Differential Diagnosis (chest pain, altered mental status, abdominal pain women, abdominal pain men, vaginal bleeding, weakness, fever, dyspnea, syncope, headache, dizziness, GI bleed, back pain, seizure, CVA, palpatations, mental health, musculoskeletal)? @ -Differential Abdominal Pain Men: Appendicitis, cholecystitis, diverticulosis, ischemic bowel, pancreatitis, hepatitis, UTI, gastroenteritis, AAA, incarcerated hernia, bowel obstruction, constipation, inflammatory bowel, hepatitis, peptic ulcer disease, splenic infarction, perforated viscus, testicular torsion, this is not meant to be an all-inclusive list EKG interpreted by me (3pts min.). @ -None X-rays interpreted by me (1pt min.). @ -None done CT interpreted by me (1pt min.). @CT without contrast showing evidence of recently passed stone, hydroureter there is kidney stone within the kidney U/S interpreted by me (1pt. min.). @ -None done What testing was considered but not performed or refused? (CT, X-rays, U/S, labs)? Why? @ -None What meds were considered but not given or refused? Why? @ -None Did you discuss the management of the patient with other professionals (professionals i.e. MYRON Knight, SUPPORT CLERK, lab, RT, psych nurse, medical social worker, carpet loom fixer, teacher, strike warfare/missile systems officer, caser in)? Give summary @ -No Was smoking cessation discussed for >3mins.? @ -No Was critical care preformed (if so, how long)? @ -No Were there social determinants of health that impacted care today? How? (Homelessness, low income, unemployed, alcoholism, drug addiction, transportation, low edu. Level, literacy, decrease access to med. care, senior living, rehab)? @ -No Was there de-escalation of care discussed even if they declined (Discuss DNR or withdrawal of care, Hospice)? DNR status @ -No What co-morbidities impacted this encounter? (DM, HTN, Smoking, COPD, CAD, Cancer, CVA, ARF, Chemo, Hep., AIDS, mental health diagnosis, sleep apnea, morbid obesity)? @ -None Was patient admitted / discharged? Hospital course, mention meds given and route, prescriptions, significant lab abnormalities, going to OR and other pertinent info. @ -Discharge patient felt the stone passed patient feels greatly improved at this time he has no current symptoms. Patient does have mild bacteria in his urine will be treated with oral antibiotics Undiagnosed new problem with uncertain prognosis? @ -No Drug Therapy requiring intensive monitoring for toxicity (Heparin, Nitro, Insulin, Cardizem)? @ -No Were any procedures done? @ -No Diagnosis/symptom? @ -Kidney stone, UTI Acute, or Chronic, or Acute on Chronic? @ -Acute Uncomplicated (without systemic symptoms) or Complicated (systemic symptoms)? @ -Complicated Side effects of treatment? @ -No Exacerbation, Progression, or Severe Exacerbation? @ -No Poses a threat to life or bodily function? How? (Chest pain, [place], GA, pneumonia, PE, COPD, DKA, ARF, appy, cholecystitis, CVA, Diverticulitis, Homicidal, Suicidal, threat to staff... and all critical care pts) @ -No - Lab Data Result diagrams: 07/18/24 11:40 07/18/24 11:40 Lab Results 07/18/24 07/18/24 07/18/24 Range/Units 11:40 11:40 11:40 WBC 15.2 H (3.8-10.6) k/uL RBC 5.45 (4.30-5.90) m/uL Hgb 16.8 (13.0-17.5) gm/dL Hct 49.2 (39.0-53.0) % MCV 90.2 (80.0-100.0) fL MCH 30.9 (25.0-35.0) pg MCHC 34.3 (31.0-37.0) g/dL RDW 12.7 (11.5-15.5) % Plt Count 243 (150-450) k/uL MPV 9.4 Neutrophils % 85 % Lymphocytes % 9 % Monocytes % 4 % Eosinophils % 1 % Basophils % 1 % Neutrophils # 12.9 H (1.3-7.7) k/uL Lymphocytes # 1.3 (1.0-4.8) k/uL Monocytes # 0.6 (0-1.0) k/uL Eosinophils # 0.1 (0-0.7) k/uL Basophils # 0.1 (0-0.2) k/uL Sodium 140 (137-145) mmol/L Potassium 4.4 (3.5-5.1) mmol/L Chloride 107 (98-107) mmol/L Carbon Dioxide 18 L (22-30) mmol/L Anion Gap 15 mmol/L BUN 28 H (9-20) mg/dL Creatinine 1.56 H (0.66-1.25) mg/dL Est GFR (CKD-EPI)AfAm 50 (>60 ml/min/1.73 sqM) Est GFR (CKD-EPI)NonAf 43 (>60 ml/min/1.73 sqM) Glucose 171 H (74-99) mg/dL Calcium 9.8 (8.4-10.2) mg/dL Total Bilirubin 1.3 (0.2-1.3) mg/dL AST 48 (17-59) U/L ALT 48 (4-49) U/L Alkaline Phosphatase 112 (38-126) U/L Total Protein 7.3 (6.3-8.2) g/dL Albumin 5.0 (3.5-5.0) g/dL Lipase 102 (23-300) U/L Urine Color Light Red Urine Appearance Cloudy (Clear) Urine pH 5.0 (5.0-8.0) Ur Specific [place] 1.028 (1.001-1.035) Urine Protein Trace H (Negative) Urine Glucose (UA) 4+ H (Negative) Urine Ketones 1+ H (Negative) Urine Blood Large H (Negative) Urine Nitrite Negative (Negative) Urine Bilirubin Negative (Negative) Urine Urobilinogen <2.0 (<2.0) mg/dL Ur Leukocyte Esterase Negative (Negative) Urine RBC >182 H (0-5) /hpf Urine WBC 46 H (0-5) /hpf Urine Bacteria Rare H (None) /hpf Urine Mucus Occasional H (None) /hpf Urine Yeast (Budding) Few H (None) /hpf Disposition Clinical Impression: Kidney stone on left side Disposition: HOME SELF-CARE Condition: Stable Instructions (If sedation given, give patient instructions): Kidney Stones (ED) Additional Instructions: Please return to the Emergency Department if symptoms worsen or any other concerns. Prescriptions: Cephalexin [Keflex] 500 mg PO Q8HR #21 cap Is patient prescribed a controlled substance at d/c from ED?: No Referrals: Ehsan Michelle MD [Primary Care Provider] - 1-2 days Time of Disposition: 12:49
--- NOTE | 2024-07-18 12:31 | CT ---
EXAMINATION TYPE: CT abdomen pelvis wo con DATE OF EXAM: 07/18/2024 12:09 PM COMPARISON: None. CLINICAL INDICATION: Male, 74 years old with history of left flank pain, Left flank pain x 3 weeks TECHNIQUE: Axial images were obtained from above the diaphragm to the pubic rami in the axial plane a t 5 mm thick sections. Reconstructed images are reviewed on the computer in the coronal plane. CONTRAST: mL of . Study performed without Oral Contrast DLP: 839.9 mGycm, Automated exposure control for dose reduction was used. FINDINGS: Limited CT sections are obtained the lung bases. The lung bases are clear. CT ABDOMEN: Liver: Normal Spleen: Normal Pancreas: Normal Adrenal glands: The adrenal glands are normal. Gallbladder: Normal Kidneys: No masses are evident. No hydronephrosis is present. Largest cyst on the right kidney is a long the inferior medial right kidney measuring 6.5 cm. Couple of punctate nonobstructing renal stone s are within the left kidney. The largest is at the inferior pole measuring 0.9 cm. Mild left hydrour eter is present extending to the urinary bladder. No obstructing etiology is identified. There is demetri cification within the dependent urinary bladder, recent passage of a left renal stone could be consid ered. Punctate nonobstructing renal stones at the upper pole right kidney. Additional upper pole cor tical renal cysts are present. Aorta: Vascular calcification is within the aorta. Inferior vena cava: Normal. CT PELVIS: Loops of bowel within the abdomen and pelvis are normal. No oral contrast is utilized limiting navin wel evaluation Appendix: Appendix as visualized appears normal. Urinary bladder: Nonobstructing dependent urinary bladder calcification is present. Genitourinary structures: Prostate is prominent Osseous structures: No suspicious lytic or sclerotic lesions. IMPRESSION: 1. Mild left hydroureter. No obstructing renal or ureteral stone evident. Nonobstructing renal stone s are present bilaterally. 2. Right renal cysts [facility], , 07/18/2024 12:29 PM
[2024-07-18] MEDS: ONDANSETRON 4 MG/2 ML VIAL IVP STA (12:50)
[2024-07-18] MEDS: HYDROmorphone 0.5 MG/0.5 ML SYRINGE IVP STA (12:50)
[2024-07-18 13:06] VITALS: BP 117/70; PULSE 57; RESP 16; TEMP 98.2
== END 2024-07-18 13:03 | disposition home or self-care (01) ==
LOC: EC 10:31
DX: N20.0 Calculus of kidney (principal); Z88.0 Allergy status to penicillin
CPT/HCPCS: 36415; 74176; 80053; 81001; 83690; 85025; 96360; 99284

== ENCOUNTER → 2024-10-05 | Outpatient (CLI) | payer MEDICARE ==
[2024-10-05 14:53] LABS: Chol/HDL Ratio 2.61 Ratio; LDL Cholesterol,Calculated 45.9 mg/dL (0.0-131.0); VLDL Calculation 19.46 mg/dL (5.00-40.00)
== END | disposition home or self-care (01) ==
LOC: LABWHC1 09:36
PROVIDERS: ATTEND Internal Medicine Clinical Cardiac Electrophysiology
DX: E78.5 Hyperlipidemia, unspecified (principal)
CPT/HCPCS: 36415; 80061